=== PATIENT | male | born 1945 | race Caucasian/White ===

== ENCOUNTER 2017-02-02 07:36 | Inpatient (IN) | payer OTHER ==
[2017-02-02] MEDS ORDERED: NS 1,000 ML IV ONE ×2 (07:45→08:51)
[2017-02-02 08:05] LABS: % IMMATURE GRANULYOCYTES 2.2 % (0.0-1.1); ABSOLUTE IMMATURE GRANULOCYTES 0.29 10^3/uL (0.00-0.10); ADD DIFF? NO; ADD MORPH? NO; ADD SCAN? NO; ATYPICAL LYMPHOCYTE FLAG 0 (0-99); FRAGMENT RBC FLAG 0 (0-99); HEMATOCRIT 43.1 % (40.0-51.0); HEMOGLOBIN 14.3 g/dL (13.7-17.5); LEFT SHIFT FLG 20 (0-99); LIPEMIA HEMOLYSIS FLAG 80 (0-99); MEAN CELL HEMOGLOBIN 31.2 pg (27.9-34.1); MEAN CELL HEMOGLOBIN CONCENTR. 33.2 g/dL (32.4-36.7); MEAN CELL VOLUME 94.1 fL (81.5-99.8); MEAN PLATELET VOLUME 10.7 fL (8.7-11.7); PLATELET CLUMPS FLAG 30 (0-99); PLATELET COUNT 143 10^3/uL (150-400); RED BLOOD CELL COUNT 4.58 10^6/uL (4.40-6.38); RED CELL DISTRIBUTION WIDTH 13.6 % (11.5-15.2)
--- NOTE | 2017-02-02 08:17 | EDPHY ---
H & P Stated Complaint: sore throat, fever Time Seen by Provider: 02/02/17 07:43 HPI/ROS: CHIEF COMPLAINT: Sore throat, fever, cough, fatigue HISTORY OF PRESENT ILLNESS: The patient presents to the ED with a several day history of sore throat, fever, cough and fatigue. The patient does have a history of diabetes. He also has a history of obstructive sleep apnea. The patient denies any acute abdominal pain, vomiting or diarrhea. He denies new rash. The patient denies symptoms of dysuria. The patient denies any changes to his chronic medications. The patient does also have a history of bipolar mood disorder. He denies any symptoms of hallucinations, suicidality or depression. The patient states that his symptoms of dyspnea and fatigue are moderate in nature. The patient does endorse symptoms of dehydration including dry mouth. REVIEW OF SYSTEMS: A comprehensive 10 point review of systems is otherwise negative aside from elements mentioned in the history of present illness. Source: Patient Exam Limitations: No limitations - Personal History Tetanus Vaccine Date: 2010 - Medical/Surgical History Hx Asthma: No Hx Chronic Respiratory Disease: No Hx Diabetes: Yes Hx Cardiac Disease: No Hx Renal Disease: No Hx Cirrhosis: No Hx Alcoholism: No Hx HIV/AIDS: No Hx Splenectomy or Spleen Trauma: No Other PMH: DM, Parkinson's, edema, bipolar, prostate CA, HTN, hypothyroid - Social History Smoking Status: Never smoked - Physical Exam Exam: General Appearance: Obese male, slightly tachypneic Eyes: Pupils equal and round no pallor or injection ENT, Mouth: Extremely dry mucous membranes, diffuse or pharyngeal erythema, no obvious mass or trismus Respiratory: There are no retractions, lungs are clear to auscultation Cardiovascular: Tachycardic Gastrointestinal: Protuberant Neurological: 5/5 strength noted all 4 extremities, cranial nerves 2-12 intact Skin: Changes consistent with stasis dermatitis noted to the lower extremities Musculoskeletal: Neck is supple nontender Extremities: symmetrical, full range of motion Constitutional: Initial Vital Signs Temperature (C) 37.2 C 02/02/17 07:47 Heart Rate 138 H 02/02/17 07:47 Respiratory Rate 20 02/02/17 07:47 Blood Pressure 121/81 H 02/02/17 07:47 O2 Sat (%) 93 02/02/17 07:47 O2 Delivery Mode Room Air Allergies/Adverse Reactions: metformin Allergy (Intermediate, Verified 03/06/12 18:42) severe diarrhea trifluoperazine HCl [From Stelazine] Allergy (Verified 06/04/16 13:34) Home Medications: Medication Instructions Recorded ARIPiprazole [Abilify 10 mg (*)] 30 mg PO DAILY 12/20/14 Divalproex [Depakote] 1,000 mg PO HS 12/20/14 Divalproex [Depakote] 500 mg PO DAILY 12/20/14 Furosemide [Lasix 40 MG (*)] 40 mg PO DAILY 12/20/14 LORazepam [Ativan (*)] 1 mg PO DAILY PRN 12/20/14 Levothyroxine [Synthroid 112 mcg 112 mcg PO DAILY 12/20/14 (*)] Lisinopril [Zestril 10 mg (*)] 10 mg PO DAILY 12/20/14 PARoxetine HCL [Paxil 20mg (*)] 20 mg PO DAILY 12/20/14 QUEtiapine FUMARATE [Seroquel 300 mg PO HS 12/20/14 300mg (*)] SIMVASTATIN 10 mg PO HS 12/20/14 Abilify 06/04/16 Aspirin 06/04/16 Ativan 06/04/16 Depakote 06/04/16 Hydrocodone/APAP 5/325 [[place] 1 - 2 each PO Q6 PRN #20 tab 06/04/16 5/325] Lasix 06/04/16 Lisinopril 06/04/16 Paxil 06/04/16 Seroquel 06/04/16 Simvastatin 06/04/16 Synthroid 06/04/16 Medical Decision Making - Diagnostics Imaging Results: Imaging Impressions Chest X-Ray 02/02/17 08:04 Impression: There is no convincing evidence of a focal infiltrate. ED Course/Re-evaluation: The patient presents to the ED for evaluation of sore throat, subjective fever and fatigue. The patient was noted to be tachycardic upon arrival. He was afebrile and normotensive. Patient does have fairly significant pharyngeal erythema without evidence of a peritonsillar mass or swelling. He has no clinical evidence of a retropharyngeal abscess or meningitis. The patient's rapid strep test was negative. Given the patient's complaints of cough, a chest x-ray was performed which demonstrates no evidence of a obvious focal infiltrate. The patient does have clinical symptoms consistent with dehydration manifest with a high heart rate and elevated lactic acid. The patient did receive IV fluid rehydration in the ED. His lactate was rechecked and found to be 2.3. At this point time there is no obvious bacterial source of infection however the patient will be treated for bronchitis with ceftriaxone and azithromycin. The patient will be admitted to the hospitalist service for close observation this evening. I do believe the patient's elevated lactate is a manifestation of mild underlying dehydration and not a marker of severe end-organ dysfunction. I do not feel the patient clinically presenting with septic shock. Additionally, I do not feel that a 4L NS bolus is indicated clinically. Patient will be admitted by Dr. Rosario this evening. Differential Diagnosis: Differential diagnosis considered includes pneumonia, pharyngitis, dehydration, viral syndrome - Data Points Laboratory Results: Laboratory Results 02/02/17 07:50 02/02/17 07:50 02/02/17 02/02/17 02/02/17 09:45 07:50 07:50 WBC RBC Hgb Hct MCV MCH MCHC RDW Plt Count MPV Neut % (Auto) Lymph % (Auto) [place] % (Auto) Eos % (Auto) Baso % (Auto) Nucleat RBC Rel Count Absolute Neuts (auto) Absolute Lymphs (auto) Absolute Monos (auto) Absolute Eos (auto) Absolute Basos (auto) Absolute Nucleated RBC Immature Gran % Immature Gran # Puncture Site RIGHT RADIAL Patient Temperature 37.0 DEGREES DEGREES pCO2 29 mmHg L mmHg (34-38) pO2 63 mmHg L mmHg (65-75) Total CO2 20 mEq/L L mEq/L (23-27) ABG pH 7.43 (7.35-7.45) ABG HCO3 19 mEq/L L mEq/L (22-26) ABG O2 Saturation 92 % % (92-95) ABG Base Excess -3.7 mEq/L L mEq/L (-2.5-2.5) ABG Hemoglobin 13.6 gm/dL L gm/dL (14.5-17.3) VBG Lactic Acid 4.0 mmol/L H mmol/L (0.7-2.1) POC Sodium 135 mEq/L L mEq/L (137-146) POC Potassium 4.4 mEq/L mEq/L (3.3-5.0) Sodium 136 mEq/L mEq/L (134-144) Potassium 5.5 mEq/L H mEq/L (3.5-5.2) Chloride 103 mEq/L mEq/L (97-110) Carbon Dioxide 18 mEq/l L mEq/l (22-31) Anion Gap 15 mEq/L mEq/L (8-16) BUN 13 mg/dL mg/dL (7-23) Creatinine 1.0 mg/dL mg/dL (0.7-1.3) Estimated GFR > 60 Glucose 259 mg/dL H mg/dL (70-100) Calcium 9.3 mg/dL mg/dL (8.5-10.4) Ionized Calcium 1.14 MMOL/L MMOL/L (1.12-1.30) Specimen Hemolysis 183 Group A Strep Screen 02/02/17 02/02/17 07:50 07:40 WBC 13.42 10^3/uL H 10^3/uL (3.80-9.50) RBC 4.58 10^6/uL 10^6/uL (4.40-6.38) Hgb 14.3 g/dL g/dL (13.7-17.5) Hct 43.1 % % (40.0-51.0) MCV 94.1 fL fL (81.5-99.8) MCH 31.2 pg pg (27.9-34.1) MCHC 33.2 g/dL g/dL (32.4-36.7) RDW 13.6 % % (11.5-15.2) Plt Count 143 10^3/uL L 10^3/uL (150-400) MPV 10.7 fL fL (8.7-11.7) Neut % (Auto) 72.0 % % (39.3-74.2) Lymph % (Auto) 8.6 % L % (15.0-45.0) [place] % (Auto) 13.6 % H % (4.5-13.0) Eos % (Auto) 2.8 % % (0.6-7.6) Baso % (Auto) 0.8 % % (0.3-1.7) Nucleat RBC Rel Count 0.0 % % (0.0-0.2) Absolute Neuts (auto) 9.67 10^3/uL H 10^3/uL (1.70-6.50) Absolute Lymphs (auto) 1.16 10^3/uL 10^3/uL (1.00-3.00) Absolute Monos (auto) 1.82 10^3/uL H 10^3/uL (0.30-0.80) Absolute Eos (auto) 0.37 10^3/uL 10^3/uL (0.03-0.40) Absolute Basos (auto) 0.11 10^3/uL H 10^3/uL (0.02-0.10) Absolute Nucleated RBC 0.00 10^3/uL 10^3/uL (0-0.01) Immature Gran % 2.2 % H % (0.0-1.1) Immature Gran # 0.29 10^3/uL H 10^3/uL (0.00-0.10) Puncture Site Patient Temperature pCO2 pO2 Total CO2 ABG pH ABG HCO3 ABG O2 Saturation ABG Base Excess ABG Hemoglobin VBG Lactic Acid POC Sodium POC Potassium Sodium Potassium Chloride Carbon Dioxide Anion Gap BUN Creatinine Estimated GFR Glucose Calcium Ionized Calcium Specimen Hemolysis Group A Strep Screen NEGATIVE (NEGATIVE) Microbiology Results: MICROBIOLOGY 02/02/17 08:25 Nasal, Sinus - Swab Respiratory Panel (PCR) - Final No Organism Detected Medications Given: Discontinued Medications Azithromycin (Zithromax) 500 mg PO EDNOW ONE PRN Reason: Protocol Stop: 02/02/17 09:00 Last Admin: 02/02/17 09:28 Dose: 500 mg Sodium Chloride (Ns) 1,000 mls @ 0 mls/hr IV ONCE ONE; Wide Open PRN Reason: Protocol Stop: 02/02/17 07:46 Last Admin: 02/02/17 08:07 Dose: 1,000 mls Sodium Chloride (Ns) 1,000 mls @ 0 mls/hr IV ONCE ONE; Wide Open PRN Reason: Protocol Stop: 02/02/17 08:52 Last Admin: 02/02/17 09:27 Dose: 1,000 mls Ceftriaxone Sodium/Dextrose (Rocephin 1 Gm (Premix)) 50 mls @ 100 mls/hr IV EDNOW ONE PRN Reason: Protocol Stop: 02/02/17 09:28 Last Admin: 02/02/17 09:28 Dose: 50 mls Point of Care Test Results: 02/02/17 09:45 POC Sodium 135 L POC Potassium 4.4 Departure - Departure Disposition: [facility] Inpatient Acute Clinical Impression: Bronchitis, Pharyngitis, Dehydration, Tachycardia Condition: Fair
[2017-02-02 08:30] LABS: ANION GAP 15 mEq/L (8-16); CALCIUM 9.3 mg/dL (8.5-10.4); CARBON DIOXIDE 18 mEq/l (22-31); CHLORIDE 103 mEq/L (97-110); GLOMERULAR FILTRATION RATE > 60; GLUCOSE 259 mg/dL (70-100); POTASSIUM 5.5 mEq/L (3.5-5.2); SODIUM 136 mEq/L (134-144); SPECIMEN HEMOLYSIS 183
[2017-02-02] MEDS ORDERED: AZITHROMYCIN 250 MG TAB PO ONE (08:59)
[2017-02-02 09:55] LABS: BASE EXCESS -3.7 mEq/L (-2.5-2.5); BICARBONATE 19 mEq/L (22-26); HEMOGLOBIN ABG 13.6 gm/dL (14.5-17.3); IONIZED CALCIUM 1.14 MMOL/L (1.12-1.30); MEASURED OXYGEN SATURATION 92 % (92-95); PCO2 29 mmHg (34-38); PO2 63 mmHg (65-75); SODIUM ABG 135 mEq/L (137-146); TCO2 20 mEq/L (23-27)
[2017-02-02 11:36] LABS: COLOR YELLOW; LEUKOCYTE ESTERASE,URINE NEGATIVE (NEGATIVE); NITRITE,URINE NEGATIVE (NEGATIVE)
[2017-02-02 11:38] LABS: MUCUS 1+ /lpf (NONE-1+)
--- NOTE | 2017-02-02 14:28 | WOCRNPDOC ---
WOCRN Advanced Assessment Note - Skin Integrity Problem, Advanced Assess Coccyx Pressure Injury Dressing Type: Open to Air Site Measurement - Head-to-Toe Length X Width X Depth (cm): 3x1x0 Pressure Injury Stage: Stage 1 Pressure Injury Present on Admit: Yes Groin Excoriation Dressing Type: Open to Air Exudate Amount: Scant Exudate Color: Clear Usha Wound Tissue: Erythema Site Measurement - Head-to-Toe Length X Width X Depth (cm): 5x5x0.1 Skin Integrity Problem Comment: Denuded skin on scrotum. Partial thickness. Apply Calazime cream to area. Luz Elena CAAL and Darius RN in room for care. Bilateral [place] Moisture Associated Dermatitis Dressing Type: Open to Air Site Measurement - Head-to-Toe Length X Width X Depth (cm): 1x7x0.1 Skin Integrity Problem Comment: Several partial thickness openings consistent with intertriginous dermatitis. Minimal to no fungal involvement. Keep skin off skin with pillowcases. Bilateral Lower Leg Venous Dermatitis Dressing Type: Open to Air Usha Wound Tissue: Erythema, Scaly, Hemosiderin Staining, Venous Dermatitis, Anhidrotic Site Odor: None Extremity Temperature: Hot Skin Integrity Problem Comment: No open wounds present. Bilateral heels blanching. Continue with compression. May remove compression at [facility]. Patient has compression however it was taken off before Wound RN rounded.
[2017-02-02] MEDS ORDERED: ACETAMINOPHEN 325 MG TAB PO PRN (15:46)
[2017-02-02] MEDS ORDERED: ONDANSETRON 4 MG/2 ML VIAL IVP PRN (15:46)
[2017-02-02] MEDS ORDERED: D50W 25 GM/50 ML SYR IVP PRN (15:50)
[2017-02-02] MEDS ORDERED: ARIPiprazole 10 MG TAB PO SCH (16:30)
[2017-02-02] MEDS ORDERED: D10W 250 ML PRN HYPOGLYCEMIA IV (16:30)
--- NOTE | 2017-02-02 16:32 | GHP ---
[f rep st] HISTORY AND PHYSICAL DATE OF ADMISSION: 02/02/2017 CHIEF COMPLAINT: Sore throat. HISTORY OF PRESENT ILLNESS: This is a 71-year-old male with a history of type 2 diabetes and [place] son's. He is essentially chair bound and does not really ambulate at baseline. He does get home he alth. He states he has had 3 days of severe sore throat. He has had fevers. No cough. He has had no nausea or vomiting. No chest pain or shortness of breath. He does admit to fatigue. REVIEW OF SYSTEMS: A 10-point review of systems was obtained and was otherwise negative. PAST MEDICAL HISTORY: 1. Type 2 diabetes. 2. Parkinson's. 3. Prostate cancer. 4. Hypertension. 5. Obstructive sleep apnea. 6. Hypothyroidism. SOCIAL HISTORY: No smoking or alcohol. Lives alone. FAMILY HISTORY: Reviewed and noncontributory. PHYSICAL EXAMINATION: VITAL SIGNS: Afebrile. Blood pressure 141/78, heart rate 109, oxygen saturat ion is 90% on room air. GENERAL: The patient is well developed, no apparent distress. HEENT: Non icteric sclerae. Extraocular movements intact. Slightly dry mucous membranes. Diffuse pharyngeal erythema. LUNGS: Good effort. Clear to auscultation bilaterally. CARDIOVASCULAR: Regular rate an d rhythm. No murmurs, rubs, or gallops. ABDOMEN: Positive bowel sounds. Soft, nontender, nondist ended. No hepatosplenomegaly. EXTREMITIES: No clubbing, cyanosis. There is trace edema and chron ic venous stasis changes. NEUROLOGIC: Alert and oriented x3. Moving all 4 extremities equally but does have a tremor. PSYCH: Normal mood and affect. LABORATORY DATA: White blood cell count elevated at 13, platelets 143. Sodium 136, potassium 5.5, CO2 about 18. Blood sugar is 259, lactic acid is 2.3. ASSESSMENT: This is a 71-year-old male, who presents with pharyngitis and dehydration. PLAN: 1. Pharyngitis. Rapid strep and respiratory viral pathogens are negative. We will, however, treat with ceftriaxone until cultures come back. He does have a slightly elevated white blood cell count. 2. Slightly elevated lactic acid and slight tachycardia. The patient does meet early sepsis criter ia. However, I think this is early, mild. We will give IV fluids today but hold off on the bolus co nsidering his lower extremity edema. 3. Mild hyperkalemia, probably related to the slight acidosis. We will hold off his lisinopril unt il this gets better. 4. Type 2 diabetes. Will do sliding scale insulin. 5. Bipolar. Continue medications. 6. Obstructive sleep apnea. Continue CPAP. 7. DVT prophylaxis. We will treat with Lovenox. 8. Admission. Patient will be admitted to the observation status. Case discussed with LISANDRO Shanks records reviewed and summarized. /[id number]/MODL
[2017-02-02] MEDS: PARoxetine HCL 20 MG TAB PO SCH (16:39)
[2017-02-02] MEDS: ACETAMINOPHEN 500 MG TAB PO PRN (16:42)
[2017-02-02] MEDS: LORazepam 1 MG TAB PO PRN (17:00)
[2017-02-02] MEDS: ARIPiprazole 10 MG TAB PO SCH (17:00)
[2017-02-02] MEDS: INSULIN LISPRO 100 UNIT/ML SC SCH (18:04)
[2017-02-02] MEDS ORDERED: NON-FORMULARY NEW DRUG (Simvastatin [Simvastatin] 10 MG) PO SCH (21:00)
[2017-02-02] MEDS: QUEtiapine FUMARATE 300 MG TAB PO SCH (21:41)
[2017-02-02] MEDS: PRAVASTATIN SODIUM 20 MG TAB PO SCH (21:41)
[2017-02-02] MEDS: DIVALPROEX NA 500 MG TAB PO SCH (21:41)
[2017-02-03 05:10] LABS: ADD DIFF? YES; ADD MORPH? NO; ATYPICAL LYMPHOCYTE FLAG 0 (0-99); FRAGMENT RBC FLAG 0 (0-99); HEMATOCRIT 41.2 % (40.0-51.0); HEMOGLOBIN 13.5 g/dL (13.7-17.5); LEFT SHIFT FLG 20 (0-99); LIPEMIA HEMOLYSIS FLAG 80 (0-99); MEAN CELL HEMOGLOBIN CONCENTR. 32.8 g/dL (32.4-36.7); MEAN CELL VOLUME 94.7 fL (81.5-99.8); MEAN PLATELET VOLUME 10.1 fL (8.7-11.7); PLATELET CLUMPS FLAG 120 (0-99); PLATELET COUNT 144 10^3/uL (150-400); RED BLOOD CELL COUNT 4.35 10^6/uL (4.40-6.38); RED CELL DISTRIBUTION WIDTH 13.5 % (11.5-15.2)
[2017-02-03 05:11] LABS: ADD SCAN? NO
[2017-02-03 05:29] LABS: ALANINE AMINOTRANSFERASE 33 IU/L (21-72); ALBUMIN 3.2 g/dL (3.5-5.0); ALKALINE PHOSPHATASE 74 IU/L (38-126); ANION GAP 10 mEq/L (8-16); ASPARTATE AMINOTRANSFERASE 21 IU/L (17-59); BILIRUBIN,TOTAL 0.7 mg/dL (0.1-1.4); CARBON DIOXIDE 19 mEq/l (22-31); CHLORIDE 107 mEq/L (97-110); CREATININE 0.9 mg/dL (0.7-1.3); GLOMERULAR FILTRATION RATE > 60; GLUCOSE 191 mg/dL (70-100); POTASSIUM 4.4 mEq/L (3.5-5.2); SODIUM 136 mEq/L (134-144); TOTAL PROTEIN 5.9 g/dL (6.3-8.2)
[2017-02-03 05:43] LABS: PLATELET ESTIMATE DECREASED (ADEQ); POLYCHROMASIA 1+
[2017-02-03] MEDS: LEVOTHYROXINE 200 MCG TAB PO SCH (05:53)
[2017-02-03] MEDS: NS 1,000 ML IV SCH ×2 (06:25→21:50)
[2017-02-03] MEDS ORDERED: LISINOPRIL 10 MG TAB PO SCH (09:00)
[2017-02-03] MEDS ORDERED: ARIPiprazole 10 MG TAB PO SCH (09:00)
[2017-02-03] MEDS: INSULIN LISPRO 100 UNIT/ML SC SCH ×3 (09:04→17:28)
[2017-02-03] MEDS: PARoxetine HCL 20 MG TAB PO SCH (09:04)
[2017-02-03] MEDS: TAMSULOSIN HCL 0.4 MG CAP PO SCH (09:04)
[2017-02-03] MEDS: DIVALPROEX NA 500 MG TAB PO SCH ×2 (09:04→19:58)
[2017-02-03] MEDS: ENOXAPARIN 40 MG/0.4 ML SYR SC SCH (09:05)
[2017-02-03] MEDS: ARIPiprazole 10 MG TAB PO SCH (09:49)
--- NOTE | 2017-02-03 13:05 | CPEKG ---
Heart Rate: 120 RR Interval: 500 P-R Interval: 168 QRSD Interval: 88 QT Interval: 304 QTC Interval: 430 P Otter[place]: 62 QRS [place]: 26 T Wave [place]: 159 EKG Severity - ABNORMAL ECG - EKG Impression: SINUS TACHYCARDIA Electronically Signed By: Francois Knox 05-Feb-2017 09:00:26
[2017-02-03] MEDS ORDERED: ERTAPENEM 1 GM in NS 100 ML IV SCH (15:00)
--- NOTE | 2017-02-03 15:02 | HOSPPROG ---
Hospitalist Progress Note Assessment/Plan: * pharyngitis * strep is negative * sepsis * lactate is better * even though he has pharyngitis I'm suspicious of another source * he does show signs of aspiration possibly aspiration pneumonia * video swallow is pending * will broaden antibiotics to Invanz * checking procalcitonin * tachycardia * mild * due to possible sepsis and persistent tachycardia will get a CT scan of the chest rule out PE * type 2 diabetes * chronic venous stasis changes * essentially bed-bound * multiple decubitus ulcers * obstructive sleep apnea * Parkinson's * DVT prophylaxis Subjective: Feels about the same. Throat still hurts Objective: Vital Signs Temp Pulse Resp BP Pulse Ox 37.7 C 117 H 20 130/81 H 93 02/03/17 14:45 02/03/17 14:45 02/03/17 14:45 02/03/17 14:45 02/03/17 14:45 Laboratory Results 02/03/17 04:45 02/03/17 04:45 02/02/17 02/03/17 02/04/17 05:59 05:59 05:59 Intake Total 2145 785 Output Total 800 Balance 1345 785 - Physical Exam Constitutional: no apparent distress, appears nourished, not in pain Eyes: anicteric sclera, EOMI Ears, Nose, Mouth, Throat: moist mucous membranes, hearing normal Cardiovascular: regular rate and rhythym, no murmur, rub, or gallop Respiratory: no respiratory distress, no rales or rhonchi, clear to auscultation , reduced air movement Gastrointestinal: normoactive bowel sounds, soft, non-tender abdomen, no palpable masses Skin: warm, other ( chronic venous stasis changes) Neurologic: AAOx3 Psychiatric: interacting appropriately, not anxious, not encephalopathic, thought process linear ICD10 Worksheet Patient Problems: Problems Problem Status Onset Bronchitis Acute Dehydration Acute Pharyngitis Acute Tachycardia Acute Diabetes mellitus type 2 Active Obesity Active Osteoarthritis of knee Acute
[2017-02-03] MEDS ORDERED: IOPAMIDOL (ISOVUE 370) 100 ML BTL IV ONE ×2 (15:56→16:21)
[2017-02-03] MEDS: LORazepam 1 MG TAB PO PRN (18:01)
[2017-02-03] MEDS: PRAVASTATIN SODIUM 20 MG TAB PO SCH (19:59)
[2017-02-03] MEDS: QUEtiapine FUMARATE 300 MG TAB PO SCH (19:59)
[2017-02-03] MEDS: FLUCONAZOLE 100 MG TAB PO SCH (20:00)
[2017-02-03] MEDS: ACETAMINOPHEN 500 MG TAB PO PRN (20:04)
[2017-02-04] MEDS: LEVOTHYROXINE 200 MCG TAB PO SCH (06:00)
[2017-02-04] MEDS: FLUCONAZOLE 100 MG TAB PO SCH (08:41)
[2017-02-04] MEDS: ENOXAPARIN 40 MG/0.4 ML SYR SC SCH (08:41)
[2017-02-04] MEDS: TAMSULOSIN HCL 0.4 MG CAP PO SCH (08:42)
[2017-02-04] MEDS: PARoxetine HCL 20 MG TAB PO SCH (08:42)
[2017-02-04] MEDS: ARIPiprazole 10 MG TAB PO SCH (08:42)
[2017-02-04] MEDS: INSULIN LISPRO 100 UNIT/ML SC SCH ×3 (08:43→18:16)
[2017-02-04] MEDS: DIVALPROEX NA 500 MG TAB PO SCH ×3 (08:43→20:18)
--- NOTE | 2017-02-04 11:26 | HOSPPROG ---
Hospitalist Progress Note Assessment/Plan: * esophagitis * start initially to have pharyngitis but CT scan showing significant esophagitis * uncertain cause * discussed with GI who will consider EGD * I have placed him on empiric Diflucan * sepsis * lactate is better * procalcitonin does not support bacterial infection * . Antibiotics * tachycardia * mild * possible small pulmonary embolism * at this point will not anticoagulate as it is is soft call and symptoms do not necessarily support this * may repeat CT scanning prior to discharge with better contrast timing * type 2 diabetes * chronic venous stasis changes * essentially bed-bound * multiple decubitus ulcers * obstructive sleep apnea * Parkinson's * DVT prophylaxis Subjective: still hurts to swallow. Maybe a little bit better Objective: Vital Signs Temp Pulse Resp BP Pulse Ox 36.9 C 102 H 21 H 181/88 H 95 02/04/17 08:00 02/04/17 08:00 02/04/17 08:00 02/04/17 08:00 02/04/17 08:00 02/03/17 02/04/17 02/05/17 05:59 05:59 05:59 Intake Total 1845 736 Balance 1845 [address] scan personally viewed interpreted - Physical Exam Constitutional: no apparent distress, appears nourished, not in pain Eyes: anicteric sclera Ears, Nose, Mouth, Throat: moist mucous membranes, No oral thrush Cardiovascular: regular rate and rhythym, no murmur, rub, or gallop Respiratory: no respiratory distress, no rales or rhonchi, clear to auscultation , reduced air movement Gastrointestinal: normoactive bowel sounds, soft, non-tender abdomen, no palpable masses Skin: warm Neurologic: AAOx3 Psychiatric: interacting appropriately, not anxious, not encephalopathic, thought process linear ICD10 Worksheet Patient Problems: Problems Problem Status Onset Bronchitis Acute Dehydration Acute Pharyngitis Acute Tachycardia Acute Diabetes mellitus type 2 Active Obesity Active Osteoarthritis of knee Acute
[2017-02-04] MEDS: NS 1,000 ML IV SCH (15:24)
[2017-02-04] MEDS: QUEtiapine FUMARATE 300 MG TAB PO SCH (20:12)
[2017-02-04] MEDS: LORazepam 1 MG TAB PO PRN (20:12)
[2017-02-04] MEDS: PRAVASTATIN SODIUM 20 MG TAB PO SCH (20:13)
[2017-02-05] MEDS: ACETAMINOPHEN 500 MG TAB PO PRN (02:27)
[2017-02-05] MEDS: LEVOTHYROXINE 200 MCG TAB PO SCH (04:38)
[2017-02-05 05:14] LABS: ADD DIFF? YES; ADD MORPH? NO; ADD SCAN? NO; ATYPICAL LYMPHOCYTE FLAG 20 (0-99); FRAGMENT RBC FLAG 0 (0-99); HEMATOCRIT 36.3 % (40.0-51.0); HEMOGLOBIN 12.2 g/dL (13.7-17.5); LEFT SHIFT FLG 30 (0-99); LIPEMIA HEMOLYSIS FLAG 80 (0-99); MEAN CELL HEMOGLOBIN 31.4 pg (27.9-34.1); MEAN CELL HEMOGLOBIN CONCENTR. 33.6 g/dL (32.4-36.7); MEAN CELL VOLUME 93.6 fL (81.5-99.8); MEAN PLATELET VOLUME 10.3 fL (8.7-11.7); PLATELET CLUMPS FLAG 0 (0-99); PLATELET COUNT 158 10^3/uL (150-400); RED BLOOD CELL COUNT 3.88 10^6/uL (4.40-6.38); RED CELL DISTRIBUTION WIDTH 13.9 % (11.5-15.2)
[2017-02-05 05:30] LABS: ANION GAP 9 mEq/L (8-16); CARBON DIOXIDE 22 mEq/l (22-31); CHLORIDE 107 mEq/L (97-110); CREATININE 0.9 mg/dL (0.7-1.3); GLOMERULAR FILTRATION RATE > 60; GLUCOSE 133 mg/dL (70-100); SODIUM 138 mEq/L (134-144)
[2017-02-05 05:38] LABS: PLATELET ESTIMATE DECREASED (ADEQ)
[2017-02-05 05:39] LABS: POLYCHROMASIA 1+
[2017-02-05] MEDS ORDERED: LR 1,000 ML IV SCH (08:30)
[2017-02-05] MEDS: INSULIN LISPRO 100 UNIT/ML SC SCH ×3 (08:39→19:25)
--- NOTE | 2017-02-05 08:59 | PDANEPAE ---
ANE History of Present Illness Esophagitis, needs EGD ANE Past Medical History - Cardiovascular History Hx Hypertension: Yes Hx Arrhythmias: No Hx Chest Pain: No Hx Coronary Artery / Peripheral Vascular Disease: No Hx CHF / Valvular Disease: No Hx Palpitations: No - Pulmonary History Hx COPD: No Hx Asthma/Reactive Airway Disease: No Hx Recent Upper Respiratory Infection: No Hx Oxygen in Use at Home: No - Neurologic History Hx Cerebrovascular Accident: No Hx Seizures: No Hx Dementia: No - Endocrine History Hx Diabetes: Yes - Renal History Hx Renal Disorders: No - Liver History Hx Hepatic Disorders: No - Neurological & Psychiatric Hx Hx Neurological and Psychiatric Disorders: Yes - Cancer History Hx Cancer: Yes - Congenital Disorder History Hx Congenital Disorders: No - GI History Hx Gastrointestinal Disorders: No - Chronic Pain History Chronic Pain: Yes (RT KNEE) ANE Review of Systems - Systems Neurological: Reports: other (Bipolar disorder, Parkinsons (no Rx currently)) ANE Patient History - Allergies Allergies/Adverse Reactions: metformin Allergy (Intermediate, Verified 03/06/12 18:42) severe diarrhea trifluoperazine HCl [From Stelazine] Allergy (Verified 02/02/17 11:53) - Home Medications Home Medications: ARIPiprazole [Abilify 10 mg (*)] 20 mg PO DAILY 12/20/14 [Last Taken 02/01/17] Divalproex [Depakote] 1,000 mg PO HS 12/20/14 [Last Taken 02/01/17] Divalproex [Depakote] 500 mg PO DAILY 12/20/14 [Last Taken 02/01/17] Furosemide [Lasix 40 MG (*)] 40 mg PO DAILY 12/20/14 [Last Taken 02/01/17] Lisinopril [Zestril 10 mg (*)] 10 mg PO DAILY 12/20/14 [Last Taken 02/01/17] PARoxetine HCL [Paxil 20mg (*)] 20 mg PO DAILY 12/20/14 [Last Taken 02/01/17] QUEtiapine FUMARATE [Seroquel 300mg (*)] 300 mg PO HS 12/20/14 [Last Taken 02/01] LORazepam [Ativan (*)] 0.5 - 1 mg PO DAILY PRN 02/02/17 [Last Taken Unknown] Levothyroxine [Synthroid 200 mcg (*)] 200 mcg PO DAILY06 02/02/17 [Last Taken ] Simvastatin 10 mg PO HS 02/02/17 [Last Taken 02/01/17] - NPO status NPO Since - Liquids (Date): 02/03/17 NPO Since - Solids (Date): 02/03/17 - Smoking Hx Smoking Status: Never smoked - Family Anes Hx Family Hx Anesthesia Complications: none ANE Labs/Vital Signs - Labs Result Diagrams: 02/05/17 04:33 02/05/17 04:33 - Vital Signs Blood Pressure: 147/74 Heart Rate: 88 Respiratory Rate: 20 O2 Sat (%): 92 Height: 187.96 cm Weight: 133.81 kg ANE Physical Exam - Airway Neck exam: FROM Mallampati Score: Class 2 - Pulmonary Pulmonary: no respiratory distress - Cardiovascular Cardiovascular: regular rate and rhythym - ASA Status ASA Status: III ANE Anesthesia Plan Anesthesia Plan: MAC
[2017-02-05] MEDS ORDERED: PROPOFOL 200 MG/20 ML VIAL ONE (09:01)
--- NOTE | 2017-02-05 09:03 | GCON ---
[f rep st] CONSULTATION CONSULTATIVE NOTE CHIEF COMPLAINT: 71-year-old male with odynophagia. HISTORY OF PRESENT ILLNESS: I have been asked to see Mr. Roque by Dr. Rosario in consultation for odynophagia. This 71-year-old gentleman has a history of type 2 diabetes myelitis, as well as Parkinson disease. He has COPD and has obstructive sleep apnea. He is on CPAP at home. He is essentially chair-bound , and has home healthcare. He does live alone. He had presented to the hospital with increasing symptoms of odynophagia. He was having trouble and pain with swallowing. He is unable to take in liquids or solids. He reported a low-grade fever, 99. He has had similar symptoms in the past, per his report. He has not had a previous upper endoscopy. He did undergo imaging. He had a video esophagram, that showed risks for operation with penetration of the level of vocal cords, with all consistency and possible silent aspiration of residual contrast and thin contrast. The patient is currently n.p.o. He also had a CT scan of his chest, for symptoms of dyspnea and shortness of breath. He did have evidence of diffuse wall thickening throughout the esophagus, possibly representing diffuse esophagitis, although carcinoma could not be excluded. Asked to see patient for further evaluation of odynophagia. PAST MEDICAL HISTORY: Diabetes mellitus types 2, Parkinson disease, prostate cancer, hypertension, obstructive sleep apnea, hypothyroidism, bipolar disorder. SOCIAL HISTORY: He is a nonsmoker, nondrinker. Lives alone. FAMILY HISTORY: Negative as it pertains to HPI. ALLERGIES: Stelazine and Metformin CURRENT MEDICATIONS: Tylenol, Abilify, Depakote, Lovenox, Diflucan, levothyroxine, Ativan, Zofran, Paxil, Pravachol, Seroquel, Flomax. REVIEW OF SYSTEMS: Negative for 10 systems other than mentioned in HPI. PHYSICAL EXAM: VITAL SIGNS: 140/77, heart rate of 88, respiratory rate 20, 92 % sat on 2 L nasal cannula, temperature is 36.9. GENERAL: Very ill-appearing gentleman, obese, lying in bed, in no acute distress. HEENT: Normocephalic, atraumatic. EOMI. No scleral icterus. Pharynx is diffuse pharyngeal erythema. NECK: Supple. No cervical adenopathy. No thyromegaly. LUNGS: Normal breath sounds. CARDIAC: Normal S1, S2 without murmur. ABDOMEN: Positive bowel sounds. Soft, nontender, nondistended. No hepatosplenomegaly. EXTREMITIES: With venous stasis changes with 1 to 2+ edema. NEUROLOGIC: Alert and oriented x3. Moving all 4 extremities with tremor. PSYCH: Normal affect. SKIN: Warm, dry, intact. EXTREMITIES: Without clubbing, cyanosis, edema. LABORATORY DATA: Group A strep screen was negative. Group A strep DNA was negative. White count was 9.2. CBC: White count of 9.29, hemoglobin 12.2, hematocrit 36.3. Serum chemistries: Serum sodium 138, potassium 4.0, chloride of 107, CO2 of 22, BUN of 11, creatinine 0.9, blood sugar of133. Video esophagram as above. CT scan of the chest as above, with a questionable small amount of pulmonary embolus in the left upper lobe and right lower lobe. The exam, however, was suboptimal with difficulty with contrast opacification in the pulmonary arteries. There was evidence of pulmonary hypertension. Diffuse wall thickening throughout the esophagus could be secondary to esophagitis, mild atelectasis, evidence of atherosclerotic disease of the coronary arteries. Chest x-ray unremarkable. IMPRESSION: 71-year-old gentleman with significant comorbid disease with chronic obstructive pulmonary disease, obstructive sleep apnea on oxygen, Parkinson disease. Patient with complaints of odynophagia, and thickening of the esophagus on CT scan. Question esophagitis. Less likely malignancy. Differential diagnosis could include viral pharyngitis, opportunistic infection such as [place] esophagitis. However, there was no oral thrush, herpes simplex , Cytomegalovirus, esophagitis. RECOMMENDATIONS: 1. Patient is n.p.o. with aspiration risk. 2. Proceed with diagnostic endoscopy with Anesthesia assistance due to increased risk and comorbid disease. 3. The patient is currently on anticoagulation, Lovenox. Will coordinate with hospitalist about holding Lovenox. Also, a question of whether or not the patient has underlying pulmonary embolus. Will follow with you. /[id number]/MODL MTDD
[2017-02-05] MEDS ORDERED: LABETALOL HCL 5 MG/ML 20 ML MDV IVP PRN (09:30)
[2017-02-05] MEDS ORDERED: fentaNYL 100 MCG/2 ML INJ IVP PRN (09:30)
[2017-02-05] MEDS ORDERED: NALOXONE HCL 0.4 MG/ML INJ IVP PRN (09:30)
--- NOTE | 2017-02-05 09:32 | POSTANESTH ---
Post Anesthetic Evaluation Cardiovascular Status: Normal, Stable, Similar to Pre-Op Cond Respiratory Status: Similar to Pre-op Cond. Level of Consciousness/Mental Status: Can Participate in Eval, Alert and Oriented Pain Control: Adequate, Prn Tx Ordered Nausea/Vomiting Control: Adequate, Prn Tx Ordered Complications Possibly Related to Anesthesia: None Noted
--- NOTE | 2017-02-05 10:31 | HOSPPROG ---
Hospitalist Progress Note Assessment/Plan: 71-year-old male with multiple comorbidities including Parkinson's and essentially bed-bound presented with weakness and pharyngitis * pharyngitis/esophagitis * thought initially to have pharyngitis only but CT scan showing significant esophagitis * Just found out that caregiver has come down with strep - rapid strep was negative here and did receive 3 doses of antibiotics, will get a throat culture and start abx empirically. * EGD showed mild esophagitis but nothing severe and continued pharyngitis * I guess this all could have been strep * sepsis * lactate is better * tachycardia * mild * dysphagia * Place dobhoff today * See if he is quickly improving or may need PEG tube in the next few days * possible small pulmonary embolism * at this point will not anticoagulate as it is is soft call and symptoms do not necessarily support this * Will get ultrasound of legs * may repeat CT scanning prior to discharge with better contrast timing * type 2 diabetes * chronic venous stasis changes * essentially bed-bound * multiple decubitus ulcers * obstructive sleep apnea * Parkinson's * DVT prophylaxis - Lovenox Subjective: Had EGD done this morning. No new complaints Objective: Vital Signs Temp Pulse Resp BP Pulse Ox 36.7 C 90 16 130/89 H 97 02/05/17 09:39 02/05/17 09:25 02/05/17 09:41 02/05/17 09:41 02/05/17 09:41 Laboratory Results 02/05/17 04:33 02/05/17 04:33 02/04/17 02/05/17 02/06/17 05:59 05:59 05:59 Intake Total 1845 1823 300 Balance 184 1823 300 Discussed with Gastroenterology - Physical Exam Constitutional: no apparent distress, appears nourished, not in pain Eyes: anicteric sclera, EOMI Ears, Nose, Mouth, Throat: moist mucous membranes, hearing normal Cardiovascular: regular rate and rhythym, no murmur, rub, or gallop, edema ( Trace) Respiratory: no respiratory distress, no rales or rhonchi, clear to auscultation Gastrointestinal: normoactive bowel sounds, soft, non-tender abdomen, no palpable masses Skin: warm, other (Venous stasis changes) Neurologic: AAOx3 Psychiatric: interacting appropriately, not anxious, not encephalopathic, thought process linear ICD10 Worksheet Patient Problems: Problems Problem Status Onset Bronchitis Acute Dehydration Acute Pharyngitis Acute Tachycardia Acute Diabetes mellitus type 2 Active Obesity Active Osteoarthritis of knee Acute
--- NOTE | 2017-02-05 10:49 | GPN ---
[f rep st] PROCEDURE NOTE PROCEDURE: Esophagogastroduodenoscopy with biopsy. PREOPERATIVE DIAGNOSES: Odynophagia, dysphagia, abnormal CT scan of the esophagus on the chest CT scan with esophagitis and esophageal thickening. INDICATIONS: A 71-year-old gentleman with multiple medical problems with Parkinson's and COPD, obstructive sleep apnea. Patient presented with a 3-day history of difficulty swallowing with pharyngeal pain. He had erythematous pharynx was strep negative. He had an esophagram that showed risk for aspiration and CT scan that showed some thickening of the esophagus consistent with esophagitis, less likely malignancy. Presents today for upper endoscopy. PHYSICAL EXAMINATION: VITAL SIGNS: Stable. LUNGS: Clear. CARDIAC: Normal S1, S2. PERMIT: Procedure was explained to the patient. Risks and benefits of the procedure were outlined to the patient. Informed consent was obtained. PREOPERATIVE MEDICATIONS: Per Anesthesia. FINDINGS OF PROCEDURE: The patient was placed in the left lateral decubitus position. The GIF-180 videoscope was passed in the oropharynx under direct visualization to the proximal esophagus. There was diffuse patchy inflammation throughout the esophagus without ulceration. Erythematous changes were nonspecific. An irregular Z-line at 45 cm. GE junction was not biopsied; however, proximal and distal esophageal biopsies were obtained. The endoscope was passed into the stomach. He had a normal appearing angularis, fundus, and cardia. Endoscope was passed to the pylorus, and the 1st and 2nd portion of the duodenum. The duodenal sweep was normal. Endoscope was brought back in the stomach. Retroflex view of the stomach revealed a normal angularis, fundus , and cardia. Endoscope was un-retroflexed and withdrawn. IMPRESSION: Nonspecific esophagitis. RECOMMENDATIONS: 1. PPI, pantoprazole IV 40 mg q.12 hours. 2. Await biopsy results for histologic evaluation of esophagitis. Findings were nonspecific. Biopsies to rule out viral etiology. no evidence of candidiasis. 3. Can resume on Lovenox shots. 4. May start on Dophoff tube feeds for hydration and nutrition /[id number]/MODL MTDD
[2017-02-05] MEDS: ARIPiprazole 10 MG TAB PO SCH (10:50)
[2017-02-05] MEDS: DIVALPROEX NA 500 MG TAB PO SCH (10:51)
[2017-02-05] MEDS: PARoxetine HCL 20 MG TAB PO SCH (10:51)
[2017-02-05] MEDS: TAMSULOSIN HCL 0.4 MG CAP PO SCH (10:51)
[2017-02-05] MEDS: ENOXAPARIN 40 MG/0.4 ML SYR SC SCH (10:53)
[2017-02-05] MEDS: FLUCONAZOLE 100 MG TAB PO SCH (11:42)
[2017-02-05] MEDS ORDERED: LIDOCAINE 2% JELLY 5 ML TUBE ONE (12:31)
[2017-02-05] MEDS ORDERED: BENZOCAINE UNIT DOSE SPRAY HURRICAINE MM ONE (12:46)
[2017-02-05] MEDS: AMPICILLIN SODIUM 1 GM in NS 100 ML IV SCH ×2 (13:24→18:51)
[2017-02-05] MEDS ORDERED: ACETAMINOPHEN 160 MG/5 ML UDCUP PO PRN (13:43)
[2017-02-05] MEDS ORDERED: ACETAMINOPHEN 650 MG/20.3 ML UDCUP PO PRN (13:51)
[2017-02-05] MEDS ORDERED: LORazepam 1 MG TAB TUBE PRN (13:54)
[2017-02-05] MEDS: ACETAMINOPHEN 650 MG/20.3 ML UDCUP TUBE PRN ×2 (14:24→20:14)
[2017-02-05] MEDS: NS 1,000 ML IV SCH (15:11)
[2017-02-05] MEDS ORDERED: LORazepam 1 MG TAB PO PRN (15:14)
--- NOTE | 2017-02-05 16:58 | WOCRNPDOC ---
WOCRN Advanced Assessment Note - Skin Integrity Problem, Advanced Assess Left Lower Posterior Ankle Blister Dressing Type: Open to Air Wound Bed Constitution: Intact Serous Filled Blister (x1) Site Measurement - Head-to-Toe Length X Width X Depth (cm): 1x0.5xraised blister Skin Integrity Problem Comment: Small blister on achilles.Two to three (0.5x0.5 is the largest) other small partial thickness openings noted that may either by de roofed blisters or abrasions. Patient needs compression on at all times during the day. On assessment compression had not been applied. Cover area with wound gel and allevyn. Patient's legs continue to have a large amount of fluid retention along with venous stasis. The area will likely continue to develop blisters and wounds until these are managed. Wound care does not need to follow these wounds. Discussed with Luz Elena CAAL.
[2017-02-05] MEDS: QUEtiapine FUMARATE 100 MG TAB TUBE SCH (20:13)
[2017-02-05] MEDS: QUEtiapine FUMARATE 50 MG TAB TUBE SCH (20:13)
[2017-02-05] MEDS: PRAVASTATIN SODIUM 20 MG TAB TUBE SCH (20:13)
[2017-02-05] MEDS: VALPROIC ACID 250 MG/5 ML UDCUP TUBE SCH (20:14)
[2017-02-06] MEDS: AMPICILLIN SODIUM 1 GM in NS 100 ML IV SCH ×4 (01:26→17:37)
[2017-02-06] MEDS: ACETAMINOPHEN 650 MG/20.3 ML UDCUP TUBE PRN ×3 (02:21→16:51)
[2017-02-06 05:26] LABS: ADD DIFF? YES; ADD MORPH? NO; ADD SCAN? NO; ATYPICAL LYMPHOCYTE FLAG 40 (0-99); FRAGMENT RBC FLAG 0 (0-99); HEMATOCRIT 36.1 % (40.0-51.0); HEMOGLOBIN 12.1 g/dL (13.7-17.5); LEFT SHIFT FLG 60 (0-99); LIPEMIA HEMOLYSIS FLAG 80 (0-99); MEAN CELL HEMOGLOBIN CONCENTR. 33.5 g/dL (32.4-36.7); MEAN CELL VOLUME 92.6 fL (81.5-99.8); PLATELET CLUMPS FLAG 0 (0-99); PLATELET COUNT 182 10^3/uL (150-400); RED CELL DISTRIBUTION WIDTH 13.8 % (11.5-15.2)
[2017-02-06 05:32] LABS: ANION GAP 8 mEq/L (8-16); CALCIUM 8.7 mg/dL (8.5-10.4); CARBON DIOXIDE 24 mEq/l (22-31); CHLORIDE 105 mEq/L (97-110); CREATININE 0.8 mg/dL (0.7-1.3); GLOMERULAR FILTRATION RATE > 60; GLUCOSE 215 mg/dL (70-100); POTASSIUM 3.9 mEq/L (3.5-5.2); SODIUM 137 mEq/L (134-144)
[2017-02-06 05:58] LABS: PLATELET ESTIMATE ADEQUATE (ADEQ)
--- NOTE | 2017-02-06 08:05 | SOAPPROG ---
SOAP Progress Note Assessment/Plan: Assessment: 1. Patient with Dophoff feeding tube, tolerating 2. Patient on empiric treatment for strep pharyngitis. 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 3. Biopsies pending form EGD. Plan: 1. Continue on TF for now 2. Await esophageal biopsies 3. Continue supportive care 4. When clinically improved re-evaluate aspiration risk 02/06/17 08:05 Subjective: CC: Odynophagia, sore throat Patient reports throat pain improved. Did not like getting feeding tube in but is tolerating now. Patient is in good spirits with sense of humor, "this is a hell of a weight loss program" Objective: Vital Signs Temp Pulse Resp BP Pulse Ox 36.8 C 88 16 139/79 H 96 02/06/17 04:00 02/06/17 04:00 02/06/17 04:00 02/06/17 04:00 02/06/17 04:00 Microbiology 02/05/17 20:31 Gram Stain - Final Throat - Swab Laboratory Results 02/06/17 04:48 02/06/17 04:48 02/05/17 02/06/17 02/07/17 05:59 05:59 05:59 Intake Total 1823 1001 695 Balance 1823 1001 695 Generic Name Dose Route Start Last Admin Trade Name Freq PRN Reason Stop Dose Admin Acetaminophen 1,000 mg 02/02/17 14:02 02/05/17 02:27 Tylenol PO 08/01/17 14:01 1,000 mg Q6HRS PRN Administration Pain, Mild/Fever, Can Take PO Acetaminophen 650 mg 02/05/17 13:52 02/06/17 02:21 Tylenol 650/20.3ml Oral Liquid TUBE 08/04/17 13:50 650 mg Q4HRS PRN Administration Pain, Moderate Aripiprazole 20 mg 02/06/17 09:00 Abilify TUBE 08/01/17 16:29 DAILY JOHNNIE Enoxaparin Sodium 40 mg 02/03/17 09:00 02/05/17 10:53 Lovenox SC 08/02/17 08:59 40 mg DAILY JOHNNIE Administration Hydromorphone HCl 0.4 mg 02/05/17 13:44 Dilaudid IVP 02/15/17 13:43 Q4HRS PRN Pain, Severe Unable to Take PO Dextrose 250 mls @ 0 mls/hr 02/02/17 16:30 D10w IV 08/01/17 16:29 PRN PRN Hypoglycemia Protocol Wide Open Sodium Chloride 1,000 mls @ 50 mls/hr 02/04/17 11:30 02/05/17 15:11 Ns IV 08/03/17 11:29 1,000 mls CONT JOHNNIE Administration Lactated Ringer's 1,000 mls @ 25 mls/hr 02/05/17 08:30 Lr IV 08/04/17 08:29 CONT JOHNNIE Ampicillin Sodium 1 gm/ Sodium 100 mls @ 200 mls/hr 02/05/17 12:00 02/06/17 05:27 Chloride IV 03/07/17 11:59 100 mls Q6HRS JOHNNIE Administration Protocol Insulin Human Lispro 0 unit 02/02/17 18:00 02/05/17 19:25 Humalog Lispro SC 08/01/17 17:59 Not Given TIDMEAL JOHNNIE Protocol Levothyroxine Sodium 100 mcg 02/06/17 10:00 Synthroid Ivp Syringe IVP 08/05/17 09:59 DAILY10 JOHNNIE Lorazepam 0.5 - 1 mg 02/05/17 13:54 02/05/17 20:17 Ativan TUBE 08/01/17 15:47 1 mg DAILY PRN Administration Anxiety Lorazepam 0.5 - 1 mg 02/06/17 09:00 Ativan Oral Liquid PO 08/05/17 08:59 DAILY PRN ANXIETY Ondansetron HCl 4 mg 02/02/17 15:46 Zofran IVP 08/01/17 15:45 Q4HRS PRN Nausea/Vomiting, Can't Take PO Ondansetron HCl 4 mg 02/02/17 15:46 Zofran Odt PO 08/01/17 15:45 Q4HRS PRN Nausea/Vomiting, Use 1st Paroxetine HCl 20 mg 02/06/17 09:00 Paxil Oral Liquid TUBE 08/05/17 08:59 DAILY JOHNNIE Pravastatin Sodium 20 mg 02/05/17 21:00 02/05/17 20:13 Pravachol TUBE 08/01/17 20:59 20 mg HS JOHNNIE Administration Quetiapine Fumarate 100 mg 02/05/17 21:00 02/05/17 20:13 Seroquel TUBE 08/04/17 20:59 100 mg BID JOHNNIE Administration Quetiapine Fumarate 50 mg 02/05/17 21:00 02/05/17 20:13 Seroquel TUBE 08/04/17 20:59 50 mg BID JOHNNIE Administration Valproic Acid 500 mg 02/06/17 09:00 Depakene Oral Liquid TUBE 08/05/17 08:59 DAILY JOHNNIE Valproic Acid 1,000 mg 02/05/17 21:00 02/05/17 20:14 Depakene Oral Liquid TUBE 08/04/17 20:59 1,000 mg HS JOHNNIE Administration Discontinued Medications Generic Name Dose Route Start Last Admin Trade Name Freq PRN Reason Stop Dose Admin Acetaminophen 650 mg 02/02/17 15:46 Tylenol PO 08/01/17 15:45 Q4HRS PRN Pain, Mild/Fever, Can Take PO Acetaminophen 650 mg 02/05/17 13:51 Tylenol 650/20.3ml Oral Liquid PO 08/04/17 13:50 Q4HRS PRN Pain, Moderate Aripiprazole 20 mg 02/03/17 09:00 Abilify PO 08/02/17 08:59 DAILY JOHNNIE Aripiprazole 10 mg 02/02/17 16:30 Abilify PO 08/01/17 16:29 DAILY JOHNNIE Aripiprazole 20 mg 02/02/17 16:30 02/05/17 10:50 Abilify PO 08/01/17 16:29 20 mg DAILY JOHNNIE Administration Azithromycin 500 mg 02/02/17 08:59 02/02/17 09:28 Zithromax PO 02/02/17 09:00 500 mg EDNOW ONE Administration Protocol Benzocaine Confirm 02/05/17 12:46 Hurricaine [place] Administered 02/05/17 12:47 Dose 1 each MM .STK-MED ONE Divalproex Sodium 500 mg 02/03/17 09:00 02/05/17 10:51 Depakote PO 08/02/17 08:59 500 mg DAILY JOHNNIE Administration Divalproex Sodium 1,000 mg 02/02/17 21:00 02/04/17 20:18 Depakote PO 08/01/17 20:59 1,000 mg HS JOHNNIE Administration Fentanyl 25 - 50 mcg 02/05/17 09:30 Sublimaze IVP 02/05/17 10:30 Q5M PRN PACU, Pain Severe Fluconazole 200 mg 02/03/17 19:45 02/05/17 11:42 Diflucan PO 03/05/17 19:44 Not Given DAILY JOHNNIE Sodium Chloride 1,000 mls @ 0 mls/hr 02/02/17 07:45 02/02/17 08:07 Ns IV 02/02/17 07:46 1,000 mls ONCE ONE Administration Protocol Wide Open Sodium Chloride 1,000 mls @ 0 mls/hr 02/02/17 08:51 02/02/17 09:27 Ns IV 02/02/17 08:52 1,000 mls ONCE ONE Administration Protocol Wide Open Ceftriaxone Sodium/Dextrose 50 mls @ 100 mls/hr 02/02/17 08:59 02/02/17 09:28 Rocephin 1 Gm (Premix) IV 02/02/17 09:28 50 mls EDNOW ONE Administration Protocol Sodium Chloride 1,000 mls @ 75 mls/hr 02/02/17 16:00 02/03/17 21:50 Ns IV 02/04/17 05:19 1,000 mls CONT JOHNNIE Administration Ceftriaxone Sodium/Dextrose 50 mls @ 100 mls/hr 02/03/17 09:30 02/03/17 09:47 Rocephin 1 Gm (Premix) IV 03/05/17 09:29 50 mls DAILY JOHNNIE Administration Protocol Ertapenem 1 gm/ Sodium 100 mls @ 200 mls/hr 02/03/17 15:00 02/03/17 15:30 Chloride IV 03/05/17 14:59 100 mls DAILY JOHNNIE Administration Protocol Iopamidol Confirm 02/03/17 15:56 Isovue-370 Administered 02/03/17 15:57 Dose 100 ml IV .STK-MED ONE Iopamidol Confirm 02/03/17 16:21 Isovue-370 Administered 02/03/17 16:22 Dose 100 ml IV .STK-MED ONE Labetalol HCl 5 - 10 mg 02/05/17 09:30 Trandate Injection IVP 02/05/17 10:30 Q10M PRN PACU, Hypertension Levothyroxine Sodium 200 mcg 02/03/17 06:00 02/05/17 04:38 Synthroid PO 08/02/17 05:59 200 mcg DAILY06 JOHNNIE Administration Lidocaine Confirm 02/05/17 12:31 Lidocaine 2% Jelly Administered 02/05/17 12:32 Dose 10 montserrat .ROUTE .STK-MED ONE Lisinopril 10 mg 02/03/17 09:00 Zestril PO 08/02/17 08:59 DAILY JOHNNIE Lorazepam 0.5 - 1 mg 02/02/17 15:48 02/04/17 20:12 Ativan PO 08/01/17 15:47 1 mg DAILY PRN Administration Anxiety Naloxone HCl 0.1 mg 02/05/17 09:30 Narcan IVP 02/05/17 10:30 Q2M PRN PACU Resp Rate <10/min Paroxetine HCl 20 mg 02/02/17 16:30 02/05/17 10:51 Paxil PO 08/01/17 16:29 20 mg DAILY JOHNNIE Administration Paroxetine HCl 20 mg 02/06/17 09:00 Paxil PO 08/01/17 16:29 DAILY JOHNNIE Pravastatin Sodium 20 mg 02/02/17 21:00 02/04/17 20:13 Pravachol PO 08/01/17 20:59 20 mg HS JOHNNIE Administration Propofol Confirm 02/05/17 09:01 Diprivan Administered 02/05/17 09:02 Dose 200 mg .ROUTE .STK-MED ONE Quetiapine Fumarate 300 mg 02/02/17 21:00 02/04/17 20:12 Seroquel PO 08/01/17 20:59 300 mg HS JOHNNIE Administration Tamsulosin HCl 0.4 mg 02/03/17 09:00 02/05/17 10:51 Flomax PO 08/02/17 08:59 0.4 mg DAILY JOHNNIE Administration Physical Exam - Physical Exam General Appearance: alert, no apparent distress Respiratory: lungs clear, normal breath sounds Cardiac/Chest: regular rate, rhythm Abdomen: normal bowel sounds, non-tender, soft Skin: normal color, warm/dry Neuro/Psych: alert, normal mood/affect, oriented x 3 ICD10 Worksheet Patient Problems: Problems Problem Status Onset Bronchitis Acute Dehydration Acute Pharyngitis Acute Tachycardia Acute Diabetes mellitus type 2 Active Obesity Active Osteoarthritis of knee Acute
[2017-02-06] MEDS ORDERED: PARoxetine HCL 20 MG TAB PO SCH (09:00)
[2017-02-06] MEDS ORDERED: LORazepam 1 MG/0.5 ML UDSYR PO PRN (09:00)
[2017-02-06] MEDS: QUEtiapine FUMARATE 100 MG TAB TUBE SCH ×2 (10:27→21:06)
[2017-02-06] MEDS: VALPROIC ACID 250 MG/5 ML UDCUP TUBE SCH ×2 (10:27→21:05)
[2017-02-06] MEDS: QUEtiapine FUMARATE 50 MG TAB TUBE SCH ×2 (10:27→21:06)
[2017-02-06] MEDS: ARIPiprazole 10 MG TAB TUBE SCH (10:31)
[2017-02-06] MEDS: PARoxetine HCL 10 MG/5 ML UDL TUBE SCH (10:32)
[2017-02-06] MEDS: LEVOTHYROXINE 100 MCG/5 ML SYR IVP SCH (10:33)
--- NOTE | 2017-02-06 11:05 | HOSPPROG ---
Hospitalist Progress Note Assessment/Plan: 71-year-old male with multiple comorbidities including Parkinson's and essentially bed-bound presented with weakness and pharyngitis * pharyngitis/esophagitis * thought initially to have pharyngitis only but CT scan showing significant esophagitis, EGD showed non-specific esophagitis * caregiver had strep - rapid strep was negative here, throat Cx pending * Cont Ampicillin empirically. * ?if this was all result of strep * sepsis / tachycardia - improved, lactate normalized. * dysphagia - VFSS showed mod-severe dysphagia. dobhoff placed 02/05, tube feeds started * may need PEG tube in the next few days if not improving * pt too sedated * acute diastolic heart failure - CXR c/w volume overload and pt has increased O2 requirement with peripheral edema -IV Lasix now -resume oral Lasix tomorrow, though may need further IV diuresis -follow I&O's, daily weights * possible small pulmonary embolism * at this point will not anticoagulate as it is a soft call and symptoms do not necessarily support this * Will get ultrasound of legs * consider repeat CT scanning prior to discharge with better contrast timing * type 2 diabetes - bg's mostly 100's * chronic venous stasis changes * essentially bed-bound * multiple decubitus ulcers * obstructive sleep apnea * Parkinson's * DVT prophylaxis - Lovenox Subjective: PT is sedated after receiving 1 mg Ativan (dose since reduced). He denies pain. He coughs quite a bit with deep breath. No fevers. He has a feeding tube, but states he would not want a PEG. Objective: Vital Signs Temp Pulse Resp BP Pulse Ox 36.4 C 85 18 133/78 H 94 02/06/17 08:00 02/06/17 08:00 02/06/17 08:00 02/06/17 08:00 02/06/17 08:00 Microbiology 02/05/17 20:31 Gram Stain - Final Throat - Swab Laboratory Results 02/06/17 04:48 02/06/17 04:48 02/05/17 02/06/17 02/07/17 05:59 05:59 05:59 Intake Total 1823 1001 695 Output Total 350 Balance 1823 1001 345 - Physical Exam Constitutional: no apparent distress Eyes: PERRL Ears, Nose, Mouth, Throat: moist mucous membranes Cardiovascular: regular rate and rhythym Respiratory: no respiratory distress, inspiratory crackles Gastrointestinal: normoactive bowel sounds, soft, non-tender abdomen Skin: warm Musculoskeletal: other (2+ LE pitting edema) Psychiatric: encephalopathic ICD10 Worksheet Patient Problems: Problems Problem Status Onset Bronchitis Acute Dehydration Acute Pharyngitis Acute Tachycardia Acute Diabetes mellitus type 2 Active Obesity Active Osteoarthritis of knee Acute
[2017-02-06] MEDS ORDERED: FUROSEMIDE 40 MG/4 ML VIAL IVP ONE (11:44)
[2017-02-06] MEDS: INSULIN LISPRO 100 UNIT/ML SC SCH ×3 (11:58→18:37)
[2017-02-06] MEDS: PRAVASTATIN SODIUM 20 MG TAB TUBE SCH (21:05)
[2017-02-07] MEDS: AMPICILLIN SODIUM 1 GM in NS 100 ML IV SCH ×6 (00:05→23:09)
[2017-02-07] MEDS: LORazepam 1 MG TAB TUBE PRN (04:41)
[2017-02-07] MEDS: ACETAMINOPHEN 650 MG/20.3 ML UDCUP TUBE PRN (07:45)
[2017-02-07] MEDS: VALPROIC ACID 250 MG/5 ML UDCUP TUBE SCH ×2 (07:48→21:11)
[2017-02-07] MEDS: PARoxetine HCL 10 MG/5 ML UDL TUBE SCH (07:48)
[2017-02-07] MEDS: ARIPiprazole 10 MG TAB TUBE SCH (07:54)
[2017-02-07] MEDS: QUEtiapine FUMARATE 50 MG TAB TUBE SCH ×2 (07:55→21:11)
[2017-02-07] MEDS: QUEtiapine FUMARATE 100 MG TAB TUBE SCH ×2 (07:56→21:11)
[2017-02-07] MEDS: ENOXAPARIN 40 MG/0.4 ML SYR SC SCH (08:03)
--- NOTE | 2017-02-07 08:42 | SOAPPROG ---
SOAP Progress Note Assessment/Plan: Assessment: 1. Patient with Dophoff feeding tube. 2. Patient on empiric treatment for strep pharyngitis. Patient reports no improvement of throat pain 3. Biopsies from esophagus were non-specific. No evidence of fungal infection, CMV or HSV. Plan: 1. Continue on TF for now 2. If continued problems with throat pain and not responsive to PCN for strep would recommend an ENT consult 3 Will sign off for now. If patient unable to take PO and require local intermodal truck driver enteral feeding please call us for possible PEG. I would hold off on PEG at this point to see if an resolution of acute process. 02/07/17 08:45 Subjective: CC: Pharyngitis, Patient still with c/o throat pain. Objective: Vital Signs Temp Pulse Resp BP Pulse Ox 37.1 C 97 16 129/82 H 95 02/07/17 08:00 02/07/17 08:00 02/07/17 08:00 02/07/17 08:00 02/07/17 08:00 Microbiology 02/05/17 20:31 Gram Stain - Final Throat - Swab Laboratory Results 02/06/17 04:48 02/06/17 04:48 02/06/17 02/07/17 02/08/17 05:59 05:59 05:59 Intake Total 1001 2241 Output Total 353 Balance 1001 1888 Generic Name Dose Route Start Last Admin Trade Name Freq PRN Reason Stop Dose Admin Acetaminophen 1,000 mg 02/02/17 14:02 02/05/17 02:27 Tylenol PO 08/01/17 14:01 1,000 mg Q6HRS PRN Administration Pain, Mild/Fever, Can Take PO Acetaminophen 650 mg 02/05/17 13:52 02/07/17 07:45 Tylenol 650/20.3ml Oral Liquid TUBE 08/04/17 13:50 650 mg Q4HRS PRN Administration Pain, Moderate Aripiprazole 20 mg 02/06/17 09:00 02/07/17 07:54 Abilify TUBE 08/01/17 16:29 20 mg DAILY JOHNNIE Administration Enoxaparin Sodium 40 mg 02/03/17 09:00 02/07/17 08:03 Lovenox SC 08/02/17 08:59 40 mg DAILY JOHNNIE Administration Furosemide 40 mg 02/07/17 09:00 02/07/17 07:56 Lasix TUBE 08/06/17 08:59 40 mg DAILY JOHNNIE Administration Furosemide 40 mg 02/07/17 09:00 Lasix Injection IVP 08/06/17 08:59 BID@0900,1500 JOHNNIE Hydromorphone HCl 0.4 mg 02/05/17 13:44 Dilaudid IVP 02/15/17 13:43 Q4HRS PRN Pain, Severe Unable to Take PO Dextrose 250 mls @ 0 mls/hr 02/02/17 16:30 D10w IV 08/01/17 16:29 PRN PRN Hypoglycemia Protocol Wide Open Ampicillin Sodium 1 gm/ Sodium 100 mls @ 200 mls/hr 02/05/17 12:00 02/07/17 05:57 Chloride IV 03/07/17 11:59 100 mls Q6HRS JOHNNIE Administration Protocol Insulin Human Lispro 0 unit 02/02/17 18:00 02/06/17 18:37 Humalog Lispro SC 08/01/17 17:59 2 units TIDMEAL JOHNNIE Administration Protocol Levothyroxine Sodium 100 mcg 02/06/17 10:00 02/06/17 10:33 Synthroid Ivp Syringe IVP 08/05/17 09:59 100 mcg DAILY10 JOHNNIE Administration Lorazepam 0.5 mg 02/06/17 11:41 02/07/17 04:41 Ativan TUBE 08/01/17 15:47 0.5 mg DAILY PRN Administration Anxiety Ondansetron HCl 4 mg 02/02/17 15:46 Zofran IVP 08/01/17 15:45 Q4HRS PRN Nausea/Vomiting, Can't Take PO Ondansetron HCl 4 mg 02/02/17 15:46 Zofran Odt PO 08/01/17 15:45 Q4HRS PRN Nausea/Vomiting, Use 1st Paroxetine HCl 20 mg 02/06/17 09:00 02/07/17 07:48 Paxil Oral Liquid TUBE 08/05/17 08:59 20 mg DAILY JOHNNIE Administration Pravastatin Sodium 20 mg 02/05/17 21:00 02/06/17 21:05 Pravachol TUBE 08/01/17 20:59 20 mg HS JOHNNIE Administration Quetiapine Fumarate 100 mg 02/05/17 21:00 02/07/17 07:56 Seroquel TUBE 08/04/17 20:59 100 mg BID JOHNNIE Administration Quetiapine Fumarate 50 mg 02/05/17 21:00 02/07/17 07:55 Seroquel TUBE 08/04/17 20:59 50 mg BID JOHNNIE Administration Valproic Acid 500 mg 02/06/17 09:00 02/07/17 07:48 Depakene Oral Liquid TUBE 08/05/17 08:59 500 mg DAILY JOHNNIE Administration Valproic Acid 1,000 mg 02/05/17 21:00 02/06/17 21:05 Depakene Oral Liquid TUBE 08/04/17 20:59 1,000 mg HS JOHNNIE Administration Discontinued Medications Generic Name Dose Route Start Last Admin Trade Name Freq PRN Reason Stop Dose Admin Acetaminophen 650 mg 02/02/17 15:46 Tylenol PO 08/01/17 15:45 Q4HRS PRN Pain, Mild/Fever, Can Take PO Acetaminophen 650 mg 02/05/17 13:51 Tylenol 650/20.3ml Oral Liquid PO 08/04/17 13:50 Q4HRS PRN Pain, Moderate Aripiprazole 20 mg 02/03/17 09:00 Abilify PO 08/02/17 08:59 DAILY JOHNNIE Aripiprazole 10 mg 02/02/17 16:30 Abilify PO 08/01/17 16:29 DAILY JOHNNIE Aripiprazole 20 mg 02/02/17 16:30 02/05/17 10:50 Abilify PO 08/01/17 16:29 20 mg DAILY JOHNNIE Administration Azithromycin 500 mg 02/02/17 08:59 02/02/17 09:28 Zithromax PO 02/02/17 09:00 500 mg EDNOW ONE Administration Protocol Benzocaine Confirm 02/05/17 12:46 Hurricaine [place] Administered 02/05/17 12:47 Dose 1 each MM .STK-MED ONE Divalproex Sodium 500 mg 02/03/17 09:00 02/05/17 10:51 Depakote PO 08/02/17 08:59 500 mg DAILY JOHNNIE Administration Divalproex Sodium 1,000 mg 02/02/17 21:00 02/04/17 20:18 Depakote PO 08/01/17 20:59 1,000 mg HS JOHNNIE Administration Fentanyl 25 - 50 mcg 02/05/17 09:30 Sublimaze IVP 02/05/17 10:30 Q5M PRN PACU, Pain Severe Fluconazole 200 mg 02/03/17 19:45 02/05/17 11:42 Diflucan PO 03/05/17 19:44 Not Given DAILY JOHNNIE Furosemide 40 mg 02/06/17 11:44 02/06/17 13:30 Lasix Injection IVP 02/06/17 11:45 40 mg ONCE ONE Administration Sodium Chloride 1,000 mls @ 0 mls/hr 02/02/17 07:45 02/02/17 08:07 Ns IV 02/02/17 07:46 1,000 mls ONCE ONE Administration Protocol Wide Open Sodium Chloride 1,000 mls @ 0 mls/hr 02/02/17 08:51 02/02/17 09:27 Ns IV 02/02/17 08:52 1,000 mls ONCE ONE Administration Protocol Wide Open Ceftriaxone Sodium/Dextrose 50 mls @ 100 mls/hr 02/02/17 08:59 02/02/17 09:28 Rocephin 1 Gm (Premix) IV 02/02/17 09:28 50 mls EDNOW ONE Administration Protocol Sodium Chloride 1,000 mls @ 75 mls/hr 02/02/17 16:00 02/03/17 21:50 Ns IV 02/04/17 05:19 1,000 mls CONT JOHNNIE Administration Ceftriaxone Sodium/Dextrose 50 mls @ 100 mls/hr 02/03/17 09:30 02/03/17 09:47 Rocephin 1 Gm (Premix) IV 03/05/17 09:29 50 mls DAILY JOHNNIE Administration Protocol Ertapenem 1 gm/ Sodium 100 mls @ 200 mls/hr 02/03/17 15:00 02/03/17 15:30 Chloride IV 03/05/17 14:59 100 mls DAILY JOHNNIE Administration Protocol Sodium Chloride 1,000 mls @ 50 mls/hr 02/04/17 11:30 02/05/17 15:11 Ns IV 08/03/17 11:29 1,000 mls CONT JOHNNIE Administration Lactated Ringer's 1,000 mls @ 25 mls/hr 02/05/17 08:30 Lr IV 08/04/17 08:29 CONT JOHNNIE Iopamidol Confirm 02/03/17 15:56 Isovue-370 Administered 02/03/17 15:57 Dose 100 ml IV .STK-MED ONE Iopamidol Confirm 02/03/17 16:21 Isovue-370 Administered 02/03/17 16:22 Dose 100 ml IV .STK-MED ONE Labetalol HCl 5 - 10 mg 02/05/17 09:30 Trandate Injection IVP 02/05/17 10:30 Q10M PRN PACU, Hypertension Levothyroxine Sodium 200 mcg 02/03/17 06:00 02/05/17 04:38 Synthroid PO 08/02/17 05:59 200 mcg DAILY06 JOHNNIE Administration Lidocaine Confirm 02/05/17 12:31 Lidocaine 2% Jelly Administered 02/05/17 12:32 Dose 10 montserrat .ROUTE .STK-MED ONE Lisinopril 10 mg 02/03/17 09:00 Zestril PO 08/02/17 08:59 DAILY JOHNNIE Lorazepam 0.5 - 1 mg 02/02/17 15:48 02/04/17 20:12 Ativan PO 08/01/17 15:47 1 mg DAILY PRN Administration Anxiety Lorazepam 0.5 - 1 mg 02/05/17 13:54 02/05/17 20:17 Ativan TUBE 08/01/17 15:47 1 mg DAILY PRN Administration Anxiety Lorazepam 0.5 - 1 mg 02/06/17 09:00 02/06/17 10:22 Ativan Oral Liquid PO 08/05/17 08:59 1 mg DAILY PRN Administration ANXIETY Naloxone HCl 0.1 mg 02/05/17 09:30 Narcan IVP 02/05/17 10:30 Q2M PRN PACU Resp Rate <10/min Paroxetine HCl 20 mg 02/02/17 16:30 02/05/17 10:51 Paxil PO 08/01/17 16:29 20 mg DAILY JOHNNIE Administration Paroxetine HCl 20 mg 02/06/17 09:00 Paxil PO 08/01/17 16:29 DAILY JOHNNIE Pravastatin Sodium 20 mg 02/02/17 21:00 02/04/17 20:13 Pravachol PO 08/01/17 20:59 20 mg HS JOHNNIE Administration Propofol Confirm 02/05/17 09:01 Diprivan Administered 02/05/17 09:02 Dose 200 mg .ROUTE .STK-MED ONE Quetiapine Fumarate 300 mg 02/02/17 21:00 02/04/17 20:12 Seroquel PO 08/01/17 20:59 300 mg HS JOHNNIE Administration Tamsulosin HCl 0.4 mg 02/03/17 09:00 02/05/17 10:51 Flomax PO 08/02/17 08:59 0.4 mg DAILY JOHNNIE Administration Physical Exam - Physical Exam General Appearance: alert, no apparent distress EENT: other (pharnyx, patient not able to open his motuh wide. Erythema of the pharnyx. ) Neck: non-tender Respiratory: lungs clear Cardiac/Chest: regular rate, rhythm Abdomen: normal bowel sounds, non-tender, soft Skin: normal color, warm/dry Neuro/Psych: alert, normal mood/affect, oriented x 3 ICD10 Worksheet Patient Problems: Problems Problem Status Onset Bronchitis Acute Dehydration Acute Pharyngitis Acute Tachycardia Acute Diabetes mellitus type 2 Active Obesity Active Osteoarthritis of knee Acute
[2017-02-07] MEDS ORDERED: FUROSEMIDE 40 MG/4 ML VIAL IVP SCH (09:00)
[2017-02-07] MEDS ORDERED: FUROSEMIDE 40 MG TAB TUBE SCH (09:00)
[2017-02-07] MEDS: INSULIN LISPRO 100 UNIT/ML SC SCH ×3 (09:01→17:53)
[2017-02-07] MEDS: LEVOTHYROXINE 100 MCG/5 ML SYR IVP SCH (11:09)
--- NOTE | 2017-02-07 12:12 | HOSPPROG ---
Hospitalist Progress Note Assessment/Plan: 71-year-old male with multiple comorbidities including Parkinson's and essentially bed-bound presented with weakness and pharyngitis * pharyngitis/esophagitis - some improvement * thought initially to have pharyngitis only but CT scan showing significant esophagitis, EGD showed non-specific esophagitis * caregiver had strep - rapid strep was negative here, throat Cx pending * Cont Ampicillin empirically. * ?if this was all result of strep * sepsis / tachycardia - improved, lactate normalized. * dysphagia - VFSS showed mod-severe dysphagia. dobhoff placed 02/05, tube feeds started * may need PEG tube in the next few days if not improving * d/w FACILITY SECURITY OFFICER who cleared him for trials of ice chips * oral thrush - start diflucan * acute diastolic heart failure - CXR c/w volume overload and pt has increased O2 requirement with peripheral edema -Cont IV Lasix -follow I&O's, daily weights * possible small pulmonary embolism * at this point will not anticoagulate as it is a soft call and symptoms do not necessarily support this * b/l LE duplex neg for DVT * type 2 diabetes - bg's mostly 100's * chronic venous stasis changes * essentially bed-bound * multiple decubitus ulcers * obstructive sleep apnea * 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 Speech saw him today and he will have trial of ice chips. No CP or SOB. LE edema persists. Objective: Vital Signs Temp Pulse Resp BP Pulse Ox 36.6 C 80 16 145/91 H 92 02/07/17 11:10 02/07/17 11:10 02/07/17 11:10 02/07/17 11:10 02/07/17 11:10 Microbiology 02/05/17 20:31 Gram Stain - Final Throat - Swab Laboratory Results 02/06/17 04:48 02/06/17 04:48 02/06/17 02/07/17 02/08/17 05:59 05:59 05:59 Intake Total 1001 2241 Output Total 353 325 Balance 1001 8524 -114 - Physical Exam Constitutional: no apparent distress Eyes: PERRL Ears, Nose, Mouth, Throat: moist mucous membranes Cardiovascular: regular rate and rhythym Respiratory: no respiratory distress, inspiratory crackles Gastrointestinal: normoactive bowel sounds, soft, non-tender abdomen Skin: warm Musculoskeletal: other (B/L 2+ LE pitting edema) Neurologic: AAOx3 Psychiatric: interacting appropriately ICD10 Worksheet Patient Problems: Problems Problem Status Onset Bronchitis Acute Dehydration Acute Pharyngitis Acute Tachycardia Acute Diabetes mellitus type 2 Active Obesity Active Osteoarthritis of knee Acute
[2017-02-07] MEDS: FUROSEMIDE 40 MG/4 ML VIAL IVP SCH (14:39)
[2017-02-07] MEDS: FLUCONAZOLE 100 MG TAB PO SCH (14:42)
[2017-02-07] MEDS: ACETAMINOPHEN 500 MG TAB PO PRN (14:42)
[2017-02-07] MEDS ORDERED: POTASSIUM CL 20 MEQ TAB PO SCH (17:00)
[2017-02-07] MEDS: POTASSIUM CL 20 MEQ/15 ML UDCUP TUBE SCH (18:41)
[2017-02-07] MEDS: PRAVASTATIN SODIUM 20 MG TAB TUBE SCH (21:11)
[2017-02-07] MEDS ORDERED: LORazepam 0.5 MG TAB TUBE ONE (22:15)
[2017-02-08 06:16] LABS: ANION GAP 8 mEq/L (8-16); CALCIUM 9.5 mg/dL (8.5-10.4); CARBON DIOXIDE 29 mEq/l (22-31); CHLORIDE 101 mEq/L (97-110); GLOMERULAR FILTRATION RATE > 60; GLUCOSE 166 mg/dL (70-100); POTASSIUM 3.9 mEq/L (3.5-5.2); SODIUM 138 mEq/L (134-144)
[2017-02-08] MEDS: AMPICILLIN SODIUM 1 GM in NS 100 ML IV SCH ×4 (06:20→23:42)
[2017-02-08] MEDS: POTASSIUM CL 20 MEQ/15 ML UDCUP TUBE SCH (09:07)
[2017-02-08] MEDS: VALPROIC ACID 250 MG/5 ML UDCUP TUBE SCH ×2 (09:08→21:06)
[2017-02-08] MEDS: ARIPiprazole 10 MG TAB TUBE SCH (09:08)
[2017-02-08] MEDS: INSULIN LISPRO 100 UNIT/ML SC SCH ×3 (09:08→18:05)
[2017-02-08] MEDS: QUEtiapine FUMARATE 50 MG TAB TUBE SCH ×2 (09:09→21:06)
[2017-02-08] MEDS: FLUCONAZOLE 100 MG TAB PO SCH (09:09)
[2017-02-08] MEDS: QUEtiapine FUMARATE 100 MG TAB TUBE SCH ×2 (09:09→21:09)
[2017-02-08] MEDS: ENOXAPARIN 40 MG/0.4 ML SYR SC SCH (09:09)
[2017-02-08] MEDS: PARoxetine HCL 10 MG/5 ML UDL TUBE SCH (09:58)
[2017-02-08] MEDS: FUROSEMIDE 40 MG/4 ML VIAL IVP SCH ×2 (09:58→16:29)
[2017-02-08] MEDS: LEVOTHYROXINE 100 MCG/5 ML SYR IVP SCH (09:58)
[2017-02-08] MEDS: ACETAMINOPHEN 650 MG/20.3 ML UDCUP TUBE PRN (10:00)
--- NOTE | 2017-02-08 11:17 | HOSPPROG ---
Hospitalist Progress Note Assessment/Plan: 71-year-old male with multiple comorbidities including Parkinson's and essentially bed-bound presented with weakness and pharyngitis * pharyngitis/esophagitis - pain improved * thought initially to have pharyngitis only but CT scan showing significant esophagitis, EGD showed non-specific esophagitis * caregiver had strep - rapid strep was negative here, throat Cx pending * Cont Ampicillin empirically, day 4 (he did receive 2 days of ceftriaxone and 1 dose of invanz prior to this). change to po when able to swallow. * ?if this was all result of strep * sepsis / tachycardia - improved, lactate normalized. * dysphagia - VFSS showed mod-severe dysphagia. dobhoff placed 02/05, tube feeds started * may need PEG tube in the next few days if not improving * d/w NETWORK AND THREAT SUPPORT SPECIALIST who cleared him for trials of ice chips * he did make progress with speech therapy today though remains NPO. he does not want a PEG. * oral thrush - restart diflucan, day 2 (received several doses last week too) * acute diastolic heart failure - CXR c/w volume overload and pt had increased O2 requirement with peripheral edema. O2 requirement improving, though still with edema and e/o volume overload. -Cont IV Lasix -I&O's not accurate due to incontinence. weights are also inconsistent. -may be ready to change back to oral / tube lasix tomorrow. 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 Says throat pain is much improved. No fevers. He wants to eat. Working with speech on his swallow function due to aspiration seen on VFSS. Objective: Vital Signs Temp Pulse Resp BP Pulse Ox 36.6 C 77 14 152/75 H 92 02/08/17 08:46 02/08/17 08:46 02/08/17 08:46 02/08/17 08:46 02/08/17 08:46 Microbiology 02/05/17 20:31 Gram Stain - Final Throat - Swab Throat Culture - Final Laboratory Results 02/06/17 04:48 02/08/17 04:50 02/07/17 02/08/17 02/09/17 05:59 05:59 05:59 Intake Total 2241 710 Output Total 353 1400 Balance 6525 -373 - Physical Exam Constitutional: no apparent distress Eyes: PERRL Ears, Nose, Mouth, Throat: moist mucous membranes Cardiovascular: regular rate and rhythym Respiratory: no respiratory distress, inspiratory crackles Gastrointestinal: normoactive bowel sounds, soft, non-tender abdomen Skin: warm Musculoskeletal: other (2+ b/l LE edema) Neurologic: AAOx3 Psychiatric: interacting appropriately ICD10 Worksheet Patient Problems: Problems Problem Status Onset Bronchitis Acute Dehydration Acute Pharyngitis Acute Tachycardia Acute Diabetes mellitus type 2 Active Obesity Active Osteoarthritis of knee Acute
[2017-02-08] MEDS: HYDROmorphONE/DILAUDID 1 MG/ML SYR IVP PRN (18:13)
[2017-02-08] MEDS: PRAVASTATIN SODIUM 20 MG TAB TUBE SCH (21:06)
[2017-02-08] MEDS: LORazepam 1 MG TAB TUBE PRN (22:27)
[2017-02-09] MEDS: AMPICILLIN SODIUM 1 GM in NS 100 ML IV SCH ×4 (05:25→23:40)
[2017-02-09 05:54] LABS: ANION GAP 12 mEq/L (8-16); CALCIUM 9.5 mg/dL (8.5-10.4); CARBON DIOXIDE 26 mEq/l (22-31); CHLORIDE 99 mEq/L (97-110); GLOMERULAR FILTRATION RATE > 60; GLUCOSE 233 mg/dL (70-100); SODIUM 137 mEq/L (134-144)
[2017-02-09] MEDS: VALPROIC ACID 250 MG/5 ML UDCUP TUBE SCH ×2 (09:21→21:32)
[2017-02-09] MEDS: ACETAMINOPHEN 650 MG/20.3 ML UDCUP TUBE PRN (09:22)
[2017-02-09] MEDS: POTASSIUM CL 20 MEQ/15 ML UDCUP TUBE SCH (09:28)
[2017-02-09] MEDS: FLUCONAZOLE 100 MG TAB PO SCH (09:29)
[2017-02-09] MEDS: ENOXAPARIN 40 MG/0.4 ML SYR SC SCH (09:30)
[2017-02-09] MEDS: ARIPiprazole 10 MG TAB TUBE SCH (09:30)
[2017-02-09] MEDS: FUROSEMIDE 40 MG/4 ML VIAL IVP SCH ×2 (09:30→16:11)
[2017-02-09] MEDS: INSULIN LISPRO 100 UNIT/ML SC SCH ×3 (09:31→19:18)
[2017-02-09] MEDS: QUEtiapine FUMARATE 50 MG TAB TUBE SCH ×2 (09:31→21:33)
[2017-02-09] MEDS: QUEtiapine FUMARATE 100 MG TAB TUBE SCH ×2 (09:32→21:33)
[2017-02-09] MEDS: PARoxetine HCL 10 MG/5 ML UDL TUBE SCH (09:40)
--- NOTE | 2017-02-09 10:39 | HOSPPROG ---
Hospitalist Progress Note Assessment/Plan: 71-year-old male with multiple comorbidities including Parkinson's and essentially bed-bound presented with weakness and pharyngitis * pharyngitis/esophagitis - pain improved * thought initially to have pharyngitis only but CT scan showed esophagitis, EGD - non-specific esophagitis * caregiver had strep though rapid strep and throat Cx neg (latter taken after atbx given) * Cont Ampicillin empirically, day 5. He did receive 2 days of ceftriaxone and 1 dose of invanz prior to this. Change to po when able to swallow. * ?if this was all result of strep * sepsis / tachycardia - improved, lactate normalized. * dysphagia - VFSS showed mod-severe dysphagia. dobhoff placed 02/05, tube feeds started * may need PEG tube in the next few days if not improving * d/w ZIGZAG MACHINE OPERATOR who cleared him for trials of ice chips * he is making progress with speech therapy today though remains NPO. he does not want a PEG. * I'm optimistic he'll regain swallow function soon, doing much better * oral thrush - restarted diflucan, day 3. He received several doses last week too. * acute diastolic heart failure - CXR c/w volume overload and pt had increased O2 requirement with peripheral edema. On room air today. -I&O's not accurate due to incontinence. weights are also inconsistent. 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 No more throat pain. No CP or SOB. Feels less puffy. Wants the dobhoff tube out, wants to eat. Motivated to get better. Does not want PEG. Objective: Vital Signs Temp Pulse Resp BP Pulse Ox 36.5 C 92 18 141/78 H 92 02/09/17 07:24 02/09/17 07:24 02/09/17 07:24 02/09/17 07:24 02/09/17 07:24 Laboratory Results 02/06/17 04:48 02/09/17 05:02 02/08/17 02/09/17 02/10/17 05:59 05:59 05:59 Intake Total 710 Output Total 1400 750 Balance -690 -750 - Physical Exam Constitutional: no apparent distress Eyes: PERRL Ears, Nose, Mouth, Throat: moist mucous membranes Cardiovascular: regular rate and rhythym Respiratory: no respiratory distress, clear to auscultation Gastrointestinal: normoactive bowel sounds, soft, non-tender abdomen Skin: warm Musculoskeletal: other (brawny b/l LE venous stasis changes, edema much improved ) Neurologic: AAOx3 Psychiatric: interacting appropriately ICD10 Worksheet Patient Problems: Problems Problem Status Onset Bronchitis Acute Dehydration Acute Pharyngitis Acute Tachycardia Acute Diabetes mellitus type 2 Active Obesity Active Osteoarthritis of knee Acute
[2017-02-09] MEDS: LEVOTHYROXINE 100 MCG/5 ML SYR IVP SCH (10:57)
[2017-02-09] MEDS: LORazepam 1 MG TAB TUBE PRN (21:32)
[2017-02-09] MEDS: PRAVASTATIN SODIUM 20 MG TAB TUBE SCH (21:32)
[2017-02-10] MEDS: AMPICILLIN SODIUM 1 GM in NS 100 ML IV SCH ×4 (05:19→23:22)
[2017-02-10] MEDS: INSULIN LISPRO 100 UNIT/ML SC SCH ×3 (09:38→17:15)
[2017-02-10] MEDS: ENOXAPARIN 40 MG/0.4 ML SYR SC SCH (09:39)
[2017-02-10] MEDS: LEVOTHYROXINE 100 MCG/5 ML SYR IVP SCH (09:40)
[2017-02-10] MEDS: POTASSIUM CL 20 MEQ/15 ML UDCUP TUBE SCH (09:44)
[2017-02-10] MEDS: VALPROIC ACID 250 MG/5 ML UDCUP TUBE SCH ×2 (09:44→21:48)
[2017-02-10] MEDS: PARoxetine HCL 10 MG/5 ML UDL TUBE SCH (09:45)
[2017-02-10] MEDS: ARIPiprazole 10 MG TAB TUBE SCH (10:35)
[2017-02-10] MEDS: QUEtiapine FUMARATE 100 MG TAB TUBE SCH ×2 (10:35→21:49)
[2017-02-10] MEDS: QUEtiapine FUMARATE 50 MG TAB TUBE SCH ×2 (10:35→21:48)
[2017-02-10] MEDS: FLUCONAZOLE 100 MG TAB PO SCH (10:36)
[2017-02-10] MEDS: FUROSEMIDE 40 MG/4 ML VIAL IVP SCH (11:12)
[2017-02-10] MEDS: FUROSEMIDE 40 MG TAB TUBE SCH (12:04)
[2017-02-10] MEDS: LANSOPRAZOLE SUSP 30MG/10ML UDSYR (Adult) TUBE SCH (12:05)
--- NOTE | 2017-02-10 14:22 | HOSPPROG ---
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 * Bipolar Subjective: No complaints - hopefull that tube will come out soon Objective: Vital Signs Temp Pulse Resp BP Pulse Ox 36.6 C 94 20 132/82 H 90 L 02/10/17 08:00 02/10/17 08:00 02/10/17 08:00 02/10/17 08:00 02/10/17 08:00 Laboratory Results 02/06/17 04:48 02/09/17 05:02 02/09/17 02/10/17 02/11/17 05:59 05:59 05:59 Intake Total 240 260 Output Total 750 750 50 Balance -750 -510 210 CTA chest reviewed - poor bolus timing, possible peripheral PE in 2 lobes CXR viewed, my personal interpretation is - possible CHF, very mild - Physical Exam Constitutional: no apparent distress, appears nourished, not in pain Cardiovascular: regular rate and rhythym, no murmur, rub, or gallop Respiratory: no respiratory distress, no rales or rhonchi, clear to auscultation Gastrointestinal: normoactive bowel sounds, soft, non-tender abdomen, no palpable masses Skin: no rashes or abrasions, no fluctuance, no induration Neurologic: AAOx3, sensation intact bilaterally Psychiatric: interacting appropriately, not anxious, not encephalopathic, thought process linear ICD10 Worksheet Patient Problems: Problems Problem Status Onset Bronchitis Acute Dehydration Acute Pharyngitis Acute Tachycardia Acute Diabetes mellitus type 2 Active Obesity Active Osteoarthritis of knee Acute
[2017-02-10] MEDS: ONDANSETRON DISINTEGRATING 4 MG TAB PO PRN (17:15)
[2017-02-10] MEDS: LORazepam 1 MG TAB TUBE PRN (21:48)
[2017-02-10] MEDS: PRAVASTATIN SODIUM 20 MG TAB TUBE SCH (21:49)
[2017-02-11] MEDS: AMPICILLIN SODIUM 1 GM in NS 100 ML IV SCH ×2 (05:15→12:21)
[2017-02-11] MEDS: LEVOTHYROXINE 200 MCG TAB TUBE SCH (05:18)
[2017-02-11] MEDS: INSULIN LISPRO 100 UNIT/ML SC SCH ×3 (08:06→18:01)
[2017-02-11] MEDS: ENOXAPARIN 40 MG/0.4 ML SYR SC SCH (08:07)
[2017-02-11] MEDS: ACETAMINOPHEN 650 MG/20.3 ML UDCUP TUBE PRN ×2 (10:23→16:41)
[2017-02-11] MEDS: POTASSIUM CL 20 MEQ/15 ML UDCUP TUBE SCH (10:24)
[2017-02-11] MEDS: VALPROIC ACID 250 MG/5 ML UDCUP TUBE SCH ×2 (10:25→20:33)
[2017-02-11] MEDS: QUEtiapine FUMARATE 50 MG TAB TUBE SCH ×2 (10:30→20:33)
[2017-02-11] MEDS: QUEtiapine FUMARATE 100 MG TAB TUBE SCH ×2 (10:30→20:33)
[2017-02-11] MEDS: FUROSEMIDE 40 MG TAB TUBE SCH (10:30)
[2017-02-11] MEDS: ARIPiprazole 10 MG TAB TUBE SCH (10:30)
[2017-02-11] MEDS: FLUCONAZOLE 100 MG TAB PO SCH (10:31)
[2017-02-11] MEDS: PARoxetine HCL 10 MG/5 ML UDL TUBE SCH (10:32)
[2017-02-11] MEDS ORDERED: ACETAMINOPHEN 500 MG TAB TUBE PRN (11:00)
[2017-02-11] MEDS: LANSOPRAZOLE SUSP 30MG/10ML UDSYR (Adult) TUBE SCH (12:21)
--- NOTE | 2017-02-11 13:46 | HOSPPROG ---
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 * Bipolar Subjective: no complaints, anxious to get tube out Objective: Vital Signs Temp Pulse Resp BP Pulse Ox 36.9 C 106 H 16 126/66 H 93 02/11/17 07:27 02/11/17 11:30 02/11/17 07:27 02/11/17 07:27 02/11/17 11:30 Laboratory Results 02/06/17 04:48 02/09/17 05:02 02/10/17 02/11/17 02/12/17 05:59 05:59 05:59 Intake Total 240 1350 180 Output Total 025 621 1953 Balance -510 510 -107 - Physical Exam Constitutional: no apparent distress, appears nourished, not in pain Cardiovascular: regular rate and rhythym, no murmur, rub, or gallop Respiratory: no respiratory distress, no rales or rhonchi, clear to auscultation Gastrointestinal: normoactive bowel sounds, soft, non-tender abdomen, no palpable masses Skin: no rashes or abrasions, no fluctuance, no induration Neurologic: AAOx3, sensation intact bilaterally Psychiatric: interacting appropriately, not anxious, not encephalopathic, thought process linear ICD10 Worksheet Patient Problems: Problems Problem Status Onset Bronchitis Acute Dehydration Acute Pharyngitis Acute Tachycardia Acute Diabetes mellitus type 2 Active Obesity Active Osteoarthritis of knee Acute
[2017-02-11] MEDS: ONDANSETRON DISINTEGRATING 4 MG TAB PO PRN (16:42)
[2017-02-11] MEDS: PRAVASTATIN SODIUM 20 MG TAB TUBE SCH (20:33)
[2017-02-11] MEDS: LORazepam 1 MG TAB TUBE PRN (20:33)
[2017-02-12] MEDS: ACETAMINOPHEN 650 MG/20.3 ML UDCUP TUBE PRN ×2 (00:09→10:12)
[2017-02-12] MEDS: HYDROmorphONE/DILAUDID 1 MG/ML SYR IVP PRN (03:15)
[2017-02-12 05:11] LABS: ABSOLUTE NRBC COUNT 0.02 10^3/uL (0-0.01); ADD DIFF? YES; ADD MORPH? NO; ATYPICAL LYMPHOCYTE FLAG 10 (0-99); FRAGMENT RBC FLAG 0 (0-99); HEMATOCRIT 38.3 % (40.0-51.0); HEMOGLOBIN 12.6 g/dL (13.7-17.5); LIPEMIA HEMOLYSIS FLAG 80 (0-99); MEAN CELL HEMOGLOBIN 30.5 pg (27.9-34.1); MEAN CELL HEMOGLOBIN CONCENTR. 32.9 g/dL (32.4-36.7); MEAN CELL VOLUME 92.7 fL (81.5-99.8); MEAN PLATELET VOLUME 10.2 fL (8.7-11.7); NRBC-AUTO% 0.2 % (0.0-0.2); PLATELET CLUMPS FLAG 10 (0-99); PLATELET COUNT 215 10^3/uL (150-400); RED BLOOD CELL COUNT 4.13 10^6/uL (4.40-6.38); RED CELL DISTRIBUTION WIDTH 13.6 % (11.5-15.2)
[2017-02-12 05:16] LABS: ADD SCAN? NO; LEFT SHIFT FLG 110 (0-99)
[2017-02-12 05:24] LABS: ANION GAP 10 mEq/L (8-16); CALCIUM 9.2 mg/dL (8.5-10.4); CARBON DIOXIDE 26 mEq/l (22-31); CHLORIDE 100 mEq/L (97-110); GLOMERULAR FILTRATION RATE > 60; GLUCOSE 232 mg/dL (70-100); POTASSIUM 4.1 mEq/L (3.5-5.2); SODIUM 136 mEq/L (134-144)
[2017-02-12] MEDS: LEVOTHYROXINE 200 MCG TAB TUBE SCH (05:46)
[2017-02-12 06:01] LABS: PLATELET ESTIMATE ADEQUATE (ADEQ); POLYCHROMASIA 1+
[2017-02-12] MEDS ORDERED: FLUCONAZOLE 100 MG TAB TUBE SCH (09:00)
[2017-02-12] MEDS: INSULIN LISPRO 100 UNIT/ML SC SCH ×2 (10:10→13:08)
[2017-02-12] MEDS: PARoxetine HCL 10 MG/5 ML UDL TUBE SCH (10:12)
[2017-02-12] MEDS: LANSOPRAZOLE SUSP 30MG/10ML UDSYR (Adult) TUBE SCH (10:12)
[2017-02-12] MEDS: POTASSIUM CL 20 MEQ/15 ML UDCUP TUBE SCH (10:13)
[2017-02-12] MEDS: VALPROIC ACID 250 MG/5 ML UDCUP TUBE SCH (10:13)
[2017-02-12] MEDS: ARIPiprazole 10 MG TAB TUBE SCH (10:21)
[2017-02-12] MEDS: QUEtiapine FUMARATE 50 MG TAB TUBE SCH (10:22)
[2017-02-12] MEDS: QUEtiapine FUMARATE 100 MG TAB TUBE SCH (10:22)
[2017-02-12] MEDS: ENOXAPARIN 40 MG/0.4 ML SYR SC SCH (10:29)
[2017-02-12] MEDS: FUROSEMIDE 40 MG TAB TUBE SCH (13:06)
--- NOTE | 2017-02-12 14:44 | PDIAF ---
- Diagnosis Diagnosis: sepsis Code Status: Full Code - Medication Management Discharge Medications: Medications to Continue on Transfer ARIPiprazole [Abilify 10 mg (*)] 20 mg PO DAILY 12/20/14 [Last Taken 02/01/17] Divalproex [Depakote] 1,000 mg PO HS 12/20/14 [Last Taken 02/01/17] Divalproex [Depakote] 500 mg PO DAILY 12/20/14 [Last Taken 02/01/17] Furosemide [Lasix 40 MG (*)] 40 mg PO DAILY 12/20/14 [Last Taken 02/01/17] Lisinopril [Zestril 10 mg (*)] 10 mg PO DAILY 12/20/14 [Last Taken 02/01/17] PARoxetine HCL [Paxil 20mg (*)] 20 mg PO DAILY 12/20/14 [Last Taken 02/01/17] QUEtiapine FUMARATE [Seroquel 300mg (*)] 300 mg PO HS 12/20/14 [Last Taken 02/01] LORazepam [Ativan (*)] 0.5 - 1 mg PO DAILY PRN 02/02/17 [Last Taken Unknown] Levothyroxine [Synthroid 200 mcg (*)] 200 mcg PO DAILY06 02/02/17 [Last Taken ] Simvastatin 10 mg PO HS 02/02/17 [Last Taken 02/01/17] Fluconazole [Diflucan (*)] 200 mg TUBE DAILY #5 tab 02/12/17 [Last Taken Unknown ] Pantoprazole Sodium [Protonix 40mg (*)] 40 mg PO DAILY #30 tab 02/12/17 [Last Taken Unknown] Fdc Antibiotic Stop Date: 02/16/17 (4 more days diflucan) Discharge Medications: Refer to the Discharge Home Medication list for PRN reason. - Orders Services needed: Physical Therapy, Occupational Therapy, Speech Language Pathologist Diet Recommendation: no restrictions on diet Diet Texture: Dysphagia 3 - Advanced - Moist, Bite-Size, [place] Thick Liquids, Meds Crushed in Puree - Follow Up Care Current Providers and Referrals: Patient,NotPresent [Unknown] - As per Instructions
[2017-02-12 16:41] VITALS: BP 129/80; PULSE 88; RESP 12; TEMP 98.1; O2SAT 89
--- NOTE | 2017-02-12 18:04 | GDS ---
[f rep st] DISCHARGE SUMMARY DISCHARGE DIAGNOSES: 1. Pharyngitis with sepsis. 2. Esophagitis. 3. Dysphagia. 4. Oral thrush. 5. [id number]-[id number] diastolic congestive heart failure. 6. Diabetes, type 2. 7. Chronic venous stasis change. 8. Morbid obesity, BMI 41, with obstructive sleep apnea. 9. 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 10. Bipolar. HISTORY: The patient is a 71-year-old male who presented with sepsis. Clinically, he had pharyngitis. His CAT scan also showed diffuse esophagitis. He underwent EGD that was relatively unremarkable, except for some mild esophagitis, nonspecific, with negative biopsy. He is now on a proton pump inhibitor. His strep was negative. However, clinical suspicion remained high, so he did receive 10 days of antibiotics, which are now complete. There was also evidence of oral candidiasis for which he was treated with Diflucan. Conceivably, he could have an element of esophageal candidiasis, although this was not seen on EGD. He will complete a course of Diflucan. His swallow was found to be extremely weak, and he required Dobbhoff tube feeds and prolonged n.p.o. Speech Therapy saw him daily, and he had a repeat video swallow study today which looks much improved, and he is now cleared for oral intake and Dobbhoff will be removed. DISCHARGE MEDICATIONS: Please see computerized record for full detailed list. NEW MEDICATIONS: 1. Diflucan 200 mg p.o. daily for 4 more days. 2. Protonix 40 mg p.o. daily. ADDITIONAL DISCHARGE INSTRUCTIONS: 1. Discharge to [facility] for further rehabilitation. 2. Dysphagia 3 diet with nectar-thick liquids. Greater than 30 minutes' time was spent arranging this discharge. Patient was seen and examined by me on the day of discharge. /[id number]/MODL MTDD
[2017-02-12] MEDS ORDERED: ENOXAPARIN 40 MG/0.4 ML SYR SC SCH (21:00)
== END 2017-02-12 18:20 | DRG 871 ==
LOC: EDUNIT# → INTOOBSV 09:46 → F3E 12:21 → OBSVTOIN 02-03 14:55
PROVIDERS: ADMIT Internal Medicine; ATTEND Internal Medicine
PROC: 0DB18ZX Excision of Upper Esophagus, Via Natural or Artificial Opening Endoscopic, Diagnostic (ICD-10-PCS; principal; 2017-02-03)
PROC: 0DB38ZX Excision of Lower Esophagus, Via Natural or Artificial Opening Endoscopic, Diagnostic (ICD-10-PCS; principal; 2017-02-03)
PROC: 0DH87UZ Insertion of Feeding Device into Small Intestine, Via Natural or Artificial Opening (ICD-10-PCS; 2017-02-05)
DX: A41.9 Sepsis, unspecified organism (principal); J02.9 Acute pharyngitis, unspecified; I26.99 Other pulmonary embolism without acute cor pulmonale; K20.9 Esophagitis, unspecified; R13.10 Dysphagia, unspecified; B37.0 Candidal stomatitis; E11.9 Type 2 diabetes mellitus without complications; G20 Parkinson's disease; I11.0 Hypertensive heart disease with heart failure; I50.31 Acute diastolic (congestive) heart failure; J44.9 Chronic obstructive pulmonary disease, unspecified; I87.2 Venous insufficiency (chronic) (peripheral); G47.33 Obstructive sleep apnea (adult) (pediatric); E03.9 Hypothyroidism, unspecified; F31.9 Bipolar disorder, unspecified; E66.01 Morbid (severe) obesity due to excess calories; Z68.41 Body mass index [BMI] 40.0-44.9, adult
CPT/HCPCS: 92526-GN; 92610-GN; 92611-GN; 96365; 97110-GP; 97163-GP; 97166-GO; 97530-GO; 97530-GP; 97535-GO; G0378; G8978-GP-CN; G8979-GP-CM; G8987-GO-CM; G8988-GO-CL; G8996-GN-CJ; G8996-GN-CM; G8997-GN-CI; G8997-GN-CK; G8998-GN-CJ; J0290; J0696; J1170; J1335; J1650; J1815; J1940; J2405; J2704; Q9967

== ENCOUNTER 2018-08-17 08:50 | Emergency (ER) | payer OTHER ==
--- NOTE | 2018-08-17 09:17 | EDPHY ---
HPI/HX/ROS/PE/MDM Narrative: CHIEF COMPLAINT: Urinary symptoms HPI: The patient is a 73 y/o male with a history of diabetes type II, Parkinson' s, and UTIs arriving with his caregiver complaining of burning urination and urinary frequency for the last two days. He has an associated lower back ache. He denies fever, nausea, vomiting, diarrhea, recent antibiotics, cough, dyspnea , or other symptoms. His caregiver reports he sits in a chair continuously and they put chucks pads below him due to the increased urinary frequency. REVIEW OF SYSTEMS: A comprehensive 10 system review of systems is otherwise negative aside from elements mentioned in the history of present illness. PMH: Diabetes type II, Parkinson's disease, prostate cancer, hypertension, obstructive sleep apnea, hypothyroidism, UTIs, CHF, chronic venous stasis, morbid obesity, bipolar disorder. SOCIAL HISTORY: Nonsmoker. Chair-bound. Prior medical records reviewed including admission 02/03/17 for sore throat, sepsis. PHYSICAL EXAM: General:Patient is alert, in no acute distress. Morbidly obese. Afebrile. ENT:Eyes are normal to inspection. ENT inspection normal. Neck: Normal inspection. Full range of motion. Respiratory:No respiratory distress. Breath sounds normal bilaterally. Cardiovascular: Tachycardic regular rate and rhythm. Strong peripheral pulses. Normal cap refill. Abdomen:The abdomen is nontender to palpation. There are no peritoneal signs. Back: Normal to inspection. No tenderness to palpation. Skin: Normal color. No rash. Warm and dry. Extremities: Venous stasis changes. Neuro: Oriented x3. Movement in all extremities. Tremor. ED Course: This is a 73 y/o male with diabetes and Parkinson's disease who is essentially chair-bound who presents with a 2-day history of dysuria and polyuria. Symptoms are consistent with prior UTIs. Abdomen is benign. Plan for IV, labs, UA. 1000: UA positive for infection. Lactate moderately elevated. I discussed these findings with the patient and his . We will treat him with IV Rocephin. Given his moderately elevated lactic acid level as well as prior admit where he presented with pharyngitis and then developed sepsis, I offered the patient admission to the hospital for close observation, repeat lactic acid to ensure that this normalizes and continued IV antibiotics. The patient declines this however and would like to go home on oral antibiotics. He understands that he is at risk of sepsis and/or readmission. - Data Points Laboratory Results: Laboratory Results 08/17/18 09:20 08/17/18 08/17/18 08/17/18 09:45 09:20 09:20 WBC 9.06 10^3/uL 10^3/uL (3.80-9.50) RBC 4.99 10^6/uL 10^6/uL (4.40-6.38) Hgb 14.7 g/dL g/dL (13.7-17.5) Hct 44.9 % % (40.0-51.0) MCV 90.0 fL fL (81.5-99.8) MCH 29.5 pg pg (27.9-34.1) MCHC 32.7 g/dL g/dL (32.4-36.7) RDW 15.0 % % (11.5-15.2) Plt Count 233 10^3/uL 10^3/uL (150-400) MPV 9.9 fL fL (8.7-11.7) Neut % (Auto) 64.2 % % (39.3-74.2) Lymph % (Auto) 17.8 % % (15.0-45.0) Marshall % (Auto) 10.3 % % (4.5-13.0) Eos % (Auto) 4.5 % % (0.6-7.6) Baso % (Auto) 0.9 % % (0.3-1.7) Nucleat RBC Rel Count 0.0 % % (0.0-0.2) Absolute Neuts (auto) 5.82 10^3/uL 10^3/uL (1.70-6.50) Absolute Lymphs (auto) 1.61 10^3/uL 10^3/uL (1.00-3.00) Absolute Monos (auto) 0.93 10^3/uL H 10^3/uL (0.30-0.80) Absolute Eos (auto) 0.41 10^3/uL H 10^3/uL (0.03-0.40) Absolute Basos (auto) 0.08 10^3/uL 10^3/uL (0.02-0.10) Absolute Nucleated RBC 0.00 10^3/uL 10^3/uL (0-0.01) Immature Gran % 2.3 % H % (0.0-1.1) Immature Gran # 0.21 10^3/uL H 10^3/uL (0.00-0.10) VBG Lactic Acid Sodium Pending Potassium Pending Chloride Pending Carbon Dioxide Pending Anion Gap Pending BUN Pending Creatinine Pending Estimated GFR Pending Glucose Pending Calcium Pending Urine Color YELLOW Urine Appearance MODERATELY TURBID Urine pH 5.0 (5.0-7.5) Ur Specific Carlyle 1.012 (1.002-1.030) Urine Protein 1+ H (NEGATIVE) Urine Ketones NEGATIVE (NEGATIVE) Urine Blood 3+ H (NEGATIVE) Urine Nitrate NEGATIVE (NEGATIVE) Urine Bilirubin NEGATIVE (NEGATIVE) Urine Urobilinogen NEGATIVE EU EU (0.2-1.0) Ur Leukocyte Esterase 3+ H (NEGATIVE) Urine RBC 10-15 /hpf H /hpf (0-3) Urine WBC 50-182 /hpf H /hpf (0-3) Ur Epithelial Cells TRACE /lpf /lpf (NONE-1+) Urine Bacteria TRACE /hpf H /hpf (NONE SEEN) Hyaline Casts 1-5 /lpf /lpf (0-1) Urine Mucus TRACE /lpf /lpf (NONE-1+) Urine Glucose 3+ H (NEGATIVE) 08/17/18 09:20 WBC RBC Hgb Hct MCV MCH MCHC RDW Plt Count MPV Neut % (Auto) Lymph % (Auto) Marshall % (Auto) Eos % (Auto) Baso % (Auto) Nucleat RBC Rel Count Absolute Neuts (auto) Absolute Lymphs (auto) Absolute Monos (auto) Absolute Eos (auto) Absolute Basos (auto) Absolute Nucleated RBC Immature Gran % Immature Gran # VBG Lactic Acid 3.2 mmol/L H mmol/L (0.7-2.1) Sodium Potassium Chloride Carbon Dioxide Anion Gap BUN Creatinine Estimated GFR Glucose Calcium Urine Color Urine Appearance Urine pH Ur Specific Carlyle Urine Protein Urine Ketones Urine Blood Urine Nitrate Urine Bilirubin Urine Urobilinogen Ur Leukocyte Esterase Urine RBC Urine WBC Ur Epithelial Cells Urine Bacteria Hyaline Casts Urine Mucus Urine Glucose Medications Given: Discontinued Medications Sodium Chloride (Ns) 500 mls @ 0 mls/hr IV EDNOW ONE; Wide Open PRN Reason: Protocol Stop: 08/17/18 09:38 Last Admin: 08/17/18 09:46 Dose: 500 mls General Time Seen by Provider: 08/17/18 09:01 Initial Vital Signs: Initial Vital Signs Temperature (C) 36.6 C 08/17/18 08:54 Heart Rate 108 H 08/17/18 08:54 Respiratory Rate 18 08/17/18 08:54 Blood Pressure 116/72 08/17/18 08:54 O2 Sat (%) 96 08/17/18 08:54 O2 Delivery Mode Room Air Allergies/Adverse Reactions: metformin Allergy (Intermediate, Verified 08/17/18 08:53) severe diarrhea trifluoperazine HCl [From Stelazine] Allergy (Verified 08/17/18 08:53) Home Medications: Medication Instructions Recorded ARIPiprazole [Abilify 10 mg (*)] 20 mg PO DAILY 12/20/14 Divalproex [Depakote] 1,000 mg PO HS 12/20/14 Divalproex [Depakote] 500 mg PO DAILY 12/20/14 Furosemide [Lasix 40 MG (*)] 40 mg PO DAILY 12/20/14 Lisinopril [Zestril 10 mg (*)] 10 mg PO DAILY 12/20/14 PARoxetine HCL [Paxil 20mg (*)] 20 mg PO DAILY 12/20/14 QUEtiapine FUMARATE [Seroquel 300 mg PO HS 12/20/14 300mg (*)] LORazepam [Ativan (*)] 0.5 - 1 mg PO DAILY PRN 02/02/17 Levothyroxine [Synthroid 200 mcg 200 mcg PO DAILY06 02/02/17 (*)] Simvastatin 10 mg PO HS 02/02/17 Fluconazole [Diflucan (*)] 200 mg TUBE DAILY #5 tab 02/12/17 Pantoprazole Sodium [Protonix 40mg 40 mg PO DAILY #30 tab 02/12/17 (*)] Departure - Departure Disposition: Home, Routine, Self-Care Clinical Impression: UTI (urinary tract infection) Qualifiers: Urinary tract infection type: acute cystitis Hematuria presence: without hematuria Qualified Code(s): N30.00 - Acute cystitis without hematuria Condition: Good Instructions: Urinary Tract Infection in Men (ED) Additional Instructions: 1. Take Keflex as prescribed. Be sure to complete the entire prescription even if you no longer have symptoms. 2. Use Tylenol and ibuprofen as directed on the packaging if needed for pain over the next few days. 3. Follow up with your primary care provider for unimproved symptoms over the next 2-3 days. 4. Return to the ED for severe pain, fever, uncontrollable vomiting, or other worsening of condition. Referrals: Dede Taylor MD [Medical Doctor] - As per Instructions Report Scribed for: Tim Angeles Report Scribed by: Cheryl Martinez Date of Report: 08/17/18 Time of Report: 09:17 Physician Review and Approval Statement: Portions of this note were transcribed by an ED scribe. I personally performed the history, physical exam, and medical decision making; and confirm the accuracy of the information in the transcribed note.
[2018-08-17 09:33] LABS: PLATELET COUNT 233 10^3/uL (150-400)
[2018-08-17] MEDS ORDERED: NS 500 ML IV ONE (09:37)
[2018-08-17 10:51] VITALS: BP 126/78
== END 2018-08-17 10:51 | disposition home or self-care (01) ==
DX: N30.00 Acute cystitis without hematuria (principal); E11.9 Type 2 diabetes mellitus without complications; G20 Parkinson's disease; I11.0 Hypertensive heart disease with heart failure; I50.9 Heart failure, unspecified; E03.9 Hypothyroidism, unspecified; E66.01 Morbid (severe) obesity due to excess calories; G47.33 Obstructive sleep apnea (adult) (pediatric)
CPT/HCPCS: 96365; 99284; J0696

== ENCOUNTER 2018-10-07 06:57 | Emergency (ER) | payer OTHER ==
--- NOTE | 2018-10-07 07:20 | EDPHY ---
H & P Stated Complaint: dizziness Time Seen by Provider: 10/07/18 07:11 - Personal History Tetanus Vaccine Date: 2010 - Medical/Surgical History Hx Asthma: No Hx Chronic Respiratory Disease: No Hx Diabetes: Yes Hx Cardiac Disease: Yes Hx Renal Disease: No Hx Cirrhosis: No Hx Alcoholism: No Hx HIV/AIDS: No Hx Splenectomy or Spleen Trauma: No Other PMH: DM, Parkinson's, edema, bipolar, prostate CA, HTN, hypothyroid - Social History Smoking Status: Never smoked Constitutional: Initial Vital Signs Temperature (C) 36.7 C 10/07/18 07:05 Heart Rate 98 10/07/18 07:05 Respiratory Rate 16 10/07/18 07:05 Blood Pressure 113/74 10/07/18 07:05 O2 Sat (%) 91 L 10/07/18 07:05 O2 Delivery Mode Room Air Allergies/Adverse Reactions: metformin Allergy (Intermediate, Verified 08/17/18 08:53) severe diarrhea trifluoperazine HCl [From Stelazine] Allergy (Verified 08/17/18 08:53) Home Medications: Medication Instructions Recorded ARIPiprazole [Abilify 10 mg (*)] 20 mg PO DAILY 12/20/14 Divalproex [Depakote] 1,000 mg PO HS 12/20/14 Divalproex [Depakote] 500 mg PO DAILY 12/20/14 Furosemide [Lasix 40 MG (*)] 40 mg PO DAILY 12/20/14 Lisinopril [Zestril 10 mg (*)] 10 mg PO DAILY 12/20/14 PARoxetine HCL [Paxil 20mg (*)] 20 mg PO DAILY 12/20/14 QUEtiapine FUMARATE [Seroquel 300 mg PO HS 12/20/14 300mg (*)] LORazepam [Ativan (*)] 0.5 - 1 mg PO DAILY PRN 02/02/17 Levothyroxine [Synthroid 200 mcg 200 mcg PO DAILY06 02/02/17 (*)] Simvastatin 10 mg PO HS 02/02/17 Fluconazole [Diflucan (*)] 200 mg TUBE DAILY #5 tab 02/12/17 Pantoprazole Sodium [Protonix 40mg 40 mg PO DAILY #30 tab 02/12/17 (*)] Cephalexin [Keflex] 500 mg PO Q6H #28 cap 08/17/18 Medical Decision Making - Diagnostics Imaging Results: Imaging Impressions Pelvis CT 10/07/18 07:20 Impression: 1. No acute fracture or dislocation. 2. Haziness around the rectum and prostate. Correlate with any signs of prostatitis or proctitis. 3. Degenerative changes of the lower lumbar spine. Findings and recommendations discussed with Justin Garcia MD at 818 hour, . Imaging: Discussed imaging studies w/ call or contact centre operator Radiologist, I viewed and interpreted images myself ED Course/Re-evaluation: CHIEF COMPLAINT: Fall, lightheaded HISTORY OF PRESENT ILLNESS: The patient is a 73 y/o male with a history fo Parkinson's and bipolar disorder arriving via EMS after he became lightheaded and fell this morning. The patient was moving from his recliner to walk across his room when he had "a wave of dizziness" and fell. He was able sort of catch his fall and denies hitting his head or loss of consciousness. His and DATA ENTRY TECHNICIAN became concerned that the patient fell in conjunction with his lightheadedness. Yesterday the patient also developed right groin pain. He denies difficulty walking or standing due to the pain. No fever, headache, chest pain, heart palpitations, shortness of breath, cough, abdominal pain, urinary or bowel complaints, numbness, paresthesias. REVIEW OF SYSTEMS: A 10 point review of systems was performed and is negative with the exception of the elements mentioned in the history of present illness. PHYSICAL EXAM: HR, BP, O2 Sat, RR. Temp noted General Appearance: Alert, well hydrated, appropriate, and non-toxic appearing. Head: Atraumatic without scalp tenderness or obvious injury Eyes: Pupils equal, round, reactive to light and accommodation, EOMI, no trauma , no injection. Ears: Clear bilaterally, no perforation, normal landmarks Nose: Atraumatic, no rhinorrhea, clear. Throat: There is no erythema or exudates, no lesions, normal tonsils, mucus membranes moist. Neck: Supple, 2+ carotid upstroke, nontender, no lymphadenopathy. Respiratory: No retractions, no distress, no wheezes, and no accessory muscle use. Lungs are clear to auscultation bilaterally. Cardiovascular: Regular rate and rhythm, no murmurs, rubs, or gallops. Bilateral carotid, radial, dorsalis pedis, and posterior tibial pulses intact. Good capillary refill all extremities. Gastrointestinal: Abdomen is soft, nontender, non-distended, no masses, no rebound, no guarding, no peritoneal signs. Musculoskeletal: Right groin pain. Normal active ROM of all extremities, atraumatic. Neurological: Parkinsonian tremor. Alert, appropriate, and interactive. The patient has normal DTRs and non-focal cranial nerves, motor, sensory, and cerebellar exam. Skin: No rashes, good turgor, no nodules on palpation. Past medical history: Parkinson's, anxiety, bipolar, hypothyroid, hypertension Past surgical history: Denies Family history: Denies Social history: at bedside, lives in [place], retired DIAGNOSTICS/PROCEDURES/CRITICAL CARE TIME: Pelvic CT: No acute findings. DIFFERENTIAL DIAGNOSIS: The differential diagnosis for the patient's dizziness included but was not limited to peripheral and central causes of vertigo, orthostatic causes including dehydration, cardiogenic and neurogenic causes, and blood loss. MEDICAL DECISION MAKING: The patient is a 73 y/o male with a history fo Parkinson's and bipolar disorder arriving via EMS after he became lightheaded and fell this morning. The patient and his are concerned about why the patient might be lightheaded. On exam the patient has an Parkinsonian tremor. He also has very mild right groin pain, but can bear weight; pelvic CT ordered. Patient's dizziness is most likely due to postural hypotension due to his Parkinson's disease. 0817: I spoke with Dr. Rivera, radiologist, regarding patient's pelvic CT. His labs are also unremarkable. Patient's symptoms are most likely due to transient autonomic nervous system dysfunction. 0824: Reassessed patient and discussed imaging and laboratory findings. Return precautions provided; patient is comfortable with this plan. - Data Points Laboratory Results: Laboratory Results 10/07/18 07:05 10/07/18 07:05 10/07/18 10/07/18 07:05 07:05 WBC 9.55 10^3/uL H 10^3/uL (3.80-9.50) RBC 5.34 10^6/uL 10^6/uL (4.40-6.38) Hgb 16.1 g/dL g/dL (13.7-17.5) Hct 50.5 % % (40.0-51.0) MCV 94.6 fL fL (81.5-99.8) MCH 30.1 pg pg (27.9-34.1) MCHC 31.9 g/dL L g/dL (32.4-36.7) RDW 15.0 % % (11.5-15.2) Plt Count 214 10^3/uL 10^3/uL (150-400) MPV 10.7 fL fL (8.7-11.7) Neut % (Auto) Pending Lymph % (Auto) Pending Todd % (Auto) Pending Eos % (Auto) Pending Baso % (Auto) Pending Nucleat RBC Rel Count Pending Absolute Neuts (auto) Pending Absolute Lymphs (auto) Pending Absolute Monos (auto) Pending Absolute Eos (auto) Pending Absolute Basos (auto) Pending Absolute Nucleated RBC Pending Immature Gran % Pending Immature Gran # Pending Platelet Estimate Pending Sodium 140 mEq/L mEq/L (135-145) Potassium 4.6 mEq/L mEq/L (3.5-5.2) Chloride 103 mEq/L mEq/L (97-110) Carbon Dioxide 26 mEq/l mEq/l (22-31) Anion Gap 11 mEq/L mEq/L (6-14) BUN 20 mg/dL mg/dL (7-23) Creatinine 1.3 mg/dL mg/dL (0.7-1.3) Estimated GFR 54 Glucose 161 mg/dL H mg/dL (70-100) Calcium 9.3 mg/dL mg/dL (8.5-10.4) Departure - Departure Disposition: Home, Routine, Self-Care Clinical Impression: Postural dizziness, Transient autonomic symptoms Condition: Good Instructions: Dizziness (ED) Additional Instructions: 1. Follow-up with your primary doctor within 72 hours. 2. Return to the Emergency Department for fever, chest pain, shortness of breath , increasing pain or other worsening of condition. Referrals: [facility],. [Clinic] - As per Instructions Report Scribed for: Justin Garcia Report Scribed by: Ginny Garcia Date of Report: 10/07/18 Time of Report: 07:12
[2018-10-07 08:10] LABS: PLATELET COUNT 214 10^3/uL (150-400)
[2018-10-07 10:03] VITALS: BP 122/89
== END 2018-10-07 10:02 | disposition home or self-care (01) ==
LOC: EDUNIT#
DX: R42 Dizziness and giddiness (principal); R10.31 Right lower quadrant pain

== ENCOUNTER 2018-10-08 15:29 | Inpatient (IN) | payer OTHER ==
--- NOTE | 2018-10-08 16:04 | EDPHY ---
H & P Stated Complaint: "legs don't work" Time Seen by Provider: 10/08/18 15:35 HPI/ROS: CHIEF COMPLAINT: Weakness, falling, right ankle pain HISTORY OF PRESENT ILLNESS: Patient has a history of Parkinson's disease. Presents the emergency department with complaints of right-sided pains most notably to the right ankle and inability to transfer. The patient does have home health. Patient has required a 2 person assist which is atypical for him over the past day. The patient was seen here in the emergency department yesterday and had a CT scan of the pelvis which was negative for traumatic findings. The patient was noted to have questionable prostatitis on his CT scan. The patient denies any complaints of dysuria. The patient's reports that she believes he will require admission to the hospital secondary to global weakness and difficulty ambulating. Patient denies any headache. He denies any acute numbness or weakness. He denies fever, cough or congestion. REVIEW OF SYSTEMS: A comprehensive 10 point review of systems is otherwise negative aside from elements mentioned in the history of present illness. Source: Patient, Family - Personal History Current Tetanus/Diphtheria Vaccine: Yes Current Tetanus Diphtheria and Acellular Pertussis (TDAP): Yes Tetanus Vaccine Date: 2010 - Medical/Surgical History Hx Asthma: No Hx Chronic Respiratory Disease: No Hx Diabetes: Yes Hx Cardiac Disease: Yes Hx Renal Disease: No Hx Cirrhosis: No Hx Alcoholism: No Hx HIV/AIDS: No Hx Splenectomy or Spleen Trauma: No Other PMH: DM, Parkinson's, edema, bipolar, prostate CA, HTN, hypothyroid - Social History Smoking Status: Never smoked - Physical Exam Exam: General Appearance: Elderly male, appears deconditioned Eyes: Pupils equal and round no pallor or injection ENT, Mouth: Mucous membranes moist Respiratory: There are no retractions, lungs are clear to auscultation Cardiovascular: Regular rate and rhythm Gastrointestinal: Abdomen is soft and nontender, no masses, bowel sounds normal Neurological: 5/5 strength noted all 4 extremities Skin: Stasis dermatitis bilateral lower extremities Musculoskeletal: Neck is supple nontender Extremities: Tenderness to palpation over the right medial lateral malleolus Psychiatric: Patient is oriented X 3, there is no agitation Constitutional: Initial Vital Signs Temperature (C) 36.9 C 10/08/18 15:42 Heart Rate 105 H 10/08/18 15:42 Respiratory Rate 20 10/08/18 15:42 Blood Pressure 133/73 H 10/08/18 15:42 O2 Sat (%) 88 L 10/08/18 15:42 O2 Delivery Mode Room Air Allergies/Adverse Reactions: metformin Allergy (Intermediate, Verified 08/17/18 08:53) severe diarrhea trifluoperazine HCl [From Stelazine] Allergy (Verified 08/17/18 08:53) Home Medications: Medication Instructions Recorded ARIPiprazole [Abilify 10 mg (*)] 20 mg PO DAILY 12/20/14 Divalproex [Depakote] 1,000 mg PO HS 12/20/14 Divalproex [Depakote] 500 mg PO DAILY 12/20/14 Furosemide [Lasix 40 MG (*)] 40 mg PO DAILY 12/20/14 Lisinopril [Zestril 10 mg (*)] 10 mg PO DAILY 12/20/14 PARoxetine HCL [Paxil 20mg (*)] 20 mg PO DAILY 12/20/14 QUEtiapine FUMARATE [Seroquel 300 mg PO HS 12/20/14 300mg (*)] LORazepam [Ativan (*)] 0.5 - 1 mg PO DAILY PRN 02/02/17 Levothyroxine [Synthroid 200 mcg 200 mcg PO DAILY06 02/02/17 (*)] Simvastatin 10 mg PO HS 02/02/17 Fluconazole [Diflucan (*)] 200 mg TUBE DAILY #5 tab 02/12/17 Pantoprazole Sodium [Protonix 40mg 40 mg PO DAILY #30 tab 02/12/17 (*)] Cephalexin [Keflex] 500 mg PO Q6H #28 cap 08/17/18 Nystatin Powder [Mycostatin Powder] 15 gm TP TID #120 powder 10/07/18 Medical Decision Making ED Course/Re-evaluation: The patient has a history of Parkinson's disease and recently fell at home. He presents to the ED today after he has developed a new right ankle pain. Patient was taken for a x-ray which demonstrates a nondisplaced distal fibular fracture. The patient unfortunately is now on able to transfer safely and will require admission to the hospital as he cannot be at home. I reviewed the results of the patient's workup from yesterday including his CT scan and laboratory testing. Given the findings on his pelvic CT yesterday urinalysis has been ordered. Consulted orthopedic PA for Dr. Hyde. They will see the patient in consultation tomorrow. Patient placed in a Puentes boot this evening. Consultation made with Dr. Espinosa from hospitalist service who will admit the patient primarily. Differential Diagnosis: Differential diagnosis considered includes ankle fracture, ankle sprain, ankle dislocation, neurovascular injury, urinary tract infection - Data Points Laboratory Results: Laboratory Results 10/08/18 15:40 10/08/18 15:40 10/08/18 10/08/18 15:40 15:40 WBC 9.53 10^3/uL H 10^3/uL (3.80-9.50) RBC 5.52 10^6/uL 10^6/uL (4.40-6.38) Hgb 16.4 g/dL g/dL (13.7-17.5) Hct 50.1 % % (40.0-51.0) MCV 90.8 fL fL (81.5-99.8) MCH 29.7 pg pg (27.9-34.1) MCHC 32.7 g/dL g/dL (32.4-36.7) RDW 15.0 % % (11.5-15.2) Plt Count 192 10^3/uL 10^3/uL (150-400) MPV 10.2 fL fL (8.7-11.7) Neut % (Auto) Not Reported Lymph % (Auto) Not Reported Creek % (Auto) Not Reported Eos % (Auto) Not Reported Baso % (Auto) Not Reported Nucleat RBC Rel Count Not Reported Absolute Neuts (auto) Not Reported Absolute Lymphs (auto) Not Reported Absolute Monos (auto) Not Reported Absolute Eos (auto) Not Reported Absolute Basos (auto) Not Reported Absolute Nucleated RBC Not Reported Immature Gran % Not Reported Seg Neutrophils % 68.7 % % Band Neutrophils % 5.1 % % Lymphocytes % 14.1 % % Monocytes % 11.1 % % Eosinophils % 0.0 % % Basophils % 1.0 % % Metamyelocytes % 0.0 % % Myelocytes % 0.0 % % Promyelocytes % 0.0 % % Blast Cells % 0.0 % % Immature Gran # Not Reported Absolute Seg Neuts 6.55 10^3/uL H 10^3/uL (1.70-6.50) Absolute Band Neuts 0.49 10^3/uL 10^3/uL (0.00-0.70) Absolute Lymphocytes 1.34 10^3/uL 10^3/uL (1.00-3.00) Absolute Monocytes 1.06 10^3/uL H 10^3/uL (0.30-0.80) Absolute Eosinophils 0.00 10^3/uL L 10^3/uL (0.03-0.40) Absolute Basophils 0.10 10^3/uL 10^3/uL (0.02-0.10) Absolute Metamyelocyte 0.00 10^3/mL 10^3/mL (0.00-0.00) Absolute Myelocytes 0.00 10^3/mL 10^3/mL (0.00-0.00) Absolute Promyelocytes 0.00 10^3/uL 10^3/uL (0.00-0.00) Absolute Plasma Cells 0.00 10^3/uL 10^3/uL (0.00-0.00) Nucleated RBCs 0 /100 WBC /100 WBC (0-0) RBC/WBC/PLT Morphology NORMAL (NORMAL) Absolute Blast Cells 0.00 10^3/uL 10^3/uL (0.00-0.00) Plasma Cells % 0.0 % % Platelet Estimate ADEQUATE (ADEQ) Sodium 137 mEq/L mEq/L (135-145) Potassium 4.1 mEq/L mEq/L (3.5-5.2) Chloride 103 mEq/L mEq/L (97-110) Carbon Dioxide 25 mEq/l mEq/l (22-31) Anion Gap 9 mEq/L mEq/L (6-14) BUN 18 mg/dL mg/dL (7-23) Creatinine 1.1 mg/dL mg/dL (0.7-1.3) Estimated GFR > 60 Glucose 149 mg/dL H mg/dL (70-100) Calcium 8.9 mg/dL mg/dL (8.5-10.4) Departure - Departure Disposition: [facility] Inpatient Acute Clinical Impression: Parkinsons disease, Diabetes mellitus type 2 Fracture of distal fibula Qualifiers: Encounter type: initial encounter Fracture type: closed Fracture morphology: other fracture Laterality: right Qualified Code(s): S82.831A - Other fracture of upper and lower end of right fibula, initial encounter for closed fracture Condition: Fair
[2018-10-08 16:31] LABS: PLATELET COUNT 192 10^3/uL (150-400)
[2018-10-08] MEDS ORDERED: ONDANSETRON 4 MG/2 ML VIAL IVP PRN (16:53)
[2018-10-08] MEDS ORDERED: ONDANSETRON DISINTEGRATING 4 MG TAB PO PRN (16:53)
[2018-10-08] MEDS ORDERED: OXYCODONE/APAP 5/325 TAB PO PRN (16:53)
[2018-10-08] MEDS ORDERED: HYDROCODONE/APAP 5/325 TAB PO PRN (16:53)
--- NOTE | 2018-10-08 17:32 | PDGENHP ---
History and Physical - Chief Complaint R ankle pain - History of Present Illness Sergio Roque is a 73 yo M with a PMHx of Parkinson's Disease, T2DM, Bipolar d/o, Prostate cancer, HTN, hypothyroidism, Diastolic CHF who presents to [facility] for R ankle pain, inability to bear weight and transfer. Patient's is at bedside who has helped with hx taking. They report that patient had a fall yesterday while working with PT at home. He was pivoting and felt lightheaded and fell on his R side. He denies hitting his head. He was seen in [facility] ED for this yesterday at which time patient was complaining of R groin pain. CT Pelvis was performed which was negative for acute pelvic fracture. Patient was then discharged from ED to home. He reports that since this morning he has had significant R ankle pain. Pain is described as sharp, non-radiating, worse with movement and weight bearing and improved with rest and not moving his RLE. He was also unable to ambulate and transfer as normal due to inability to bear weight on his right leg. He denies any chest pain, SOB, abdominal pain, n/ v, d/c. He does report some decreased urination today with decreased PO intake but denies dysuria. History Information - Allergies/Home Medication List Allergies/Adverse Reactions: metformin Allergy (Intermediate, Verified 08/17/18 08:53) severe diarrhea trifluoperazine HCl [From Stelazine] Allergy (Verified 08/17/18 08:53) Home Medications: ARIPiprazole [Abilify 10 mg (*)] 20 mg PO DAILY 12/20/14 [Last Taken 02/01/17] Divalproex [Depakote] 1,000 mg PO HS 12/20/14 [Last Taken 02/01/17] Divalproex [Depakote] 500 mg PO DAILY 12/20/14 [Last Taken 02/01/17] Furosemide [Lasix 40 MG (*)] 40 mg PO DAILY 12/20/14 [Last Taken 02/01/17] Lisinopril [Zestril 10 mg (*)] 10 mg PO DAILY 12/20/14 [Last Taken 02/01/17] PARoxetine HCL [Paxil 20mg (*)] 20 mg PO DAILY 12/20/14 [Last Taken 02/01/17] QUEtiapine FUMARATE [Seroquel 300mg (*)] 300 mg PO HS 12/20/14 [Last Taken 02/01] LORazepam [Ativan (*)] 0.5 - 1 mg PO DAILY PRN 02/02/17 [Last Taken Unknown] Levothyroxine [Synthroid 200 mcg (*)] 200 mcg PO DAILY06 02/02/17 [Last Taken ] Simvastatin 10 mg PO HS 02/02/17 [Last Taken 02/01/17] I have personally reviewed and updated: family history, medical history, social history, surgical history - Past Medical History cancer, CHF, diabetes type 2, hypertension Additional medical history: Parkinson's, Bilpolar d/o - Surgical History Reports: cholecystectomy - Family History Positive for: non-pertinent - Social History Smoking Status: Never smoked Review of Systems Review of Systems: ROS: 10pt was reviewed & negative except for what was stated in HPI & below Physical Exam Physical Exam: Temp Pulse Resp BP Pulse Ox 36.9 C 105 H 20 133/73 H 88 L 10/08/18 15:42 10/08/18 15:42 10/08/18 15:42 10/08/18 15:42 10/08/18 15:42 Constitutional: no apparent distress Ears, Nose, Mouth, Throat: moist mucous membranes Cardiovascular: regular rate and rhythym Respiratory: no respiratory distress, clear to auscultation Gastrointestinal: soft, non-tender abdomen Genitourinary: no bladder tenderness, No nguyen in urethra Skin: normal color Musculoskeletal: pain with ROM, other (UE tremors ) Neurologic: AAOx3 Psychiatric: interacting appropriately Lab Data & Imaging Review 10/08/18 15:40 10/08/18 15:40 WBC 9.53 10^3/uL (3.80-9.50) H 10/08/18 15:40 RBC 5.52 10^6/uL (4.40-6.38) 10/08/18 15:40 Hgb 16.4 g/dL (13.7-17.5) 10/08/18 15:40 Hct 50.1 % (40.0-51.0) 10/08/18 15:40 MCV 90.8 fL (81.5-99.8) 10/08/18 15:40 MCH 29.7 pg (27.9-34.1) 10/08/18 15:40 MCHC 32.7 g/dL (32.4-36.7) 10/08/18 15:40 RDW 15.0 % (11.5-15.2) 10/08/18 15:40 Plt Count 192 10^3/uL (150-400) 10/08/18 15:40 MPV 10.2 fL (8.7-11.7) 10/08/18 15:40 Neut % (Auto) Not Reported 10/08/18 15:40 Lymph % (Auto) Not Reported 10/08/18 15:40 Dare % (Auto) Not Reported 10/08/18 15:40 Eos % (Auto) Not Reported 10/08/18 15:40 Baso % (Auto) Not Reported 10/08/18 15:40 Nucleat RBC Rel Count Not Reported 10/08/18 15:40 Absolute Neuts (auto) Not Reported 10/08/18 15:40 Absolute Lymphs (auto) Not Reported 10/08/18 15:40 Absolute Monos (auto) Not Reported 10/08/18 15:40 Absolute Eos (auto) Not Reported 10/08/18 15:40 Absolute Basos (auto) Not Reported 10/08/18 15:40 Absolute Nucleated RBC Not Reported 10/08/18 15:40 Immature Gran % Not Reported 10/08/18 15:40 Seg Neutrophils % 68.7 % 10/08/18 15:40 Band Neutrophils % 5.1 % 10/08/18 15:40 Lymphocytes % 14.1 % 10/08/18 15:40 Monocytes % 11.1 % 10/08/18 15:40 Eosinophils % 0.0 % 10/08/18 15:40 Basophils % 1.0 % 10/08/18 15:40 Metamyelocytes % 0.0 % 10/08/18 15:40 Myelocytes % 0.0 % 10/08/18 15:40 Promyelocytes % 0.0 % 10/08/18 15:40 Blast Cells % 0.0 % 10/08/18 15:40 Immature Gran # Not Reported 10/08/18 15:40 Absolute Seg Neuts 6.55 10^3/uL (1.70-6.50) H 10/08/18 15:40 Absolute Band Neuts 0.49 10^3/uL (0.00-0.70) 10/08/18 15:40 Absolute Lymphocytes 1.34 10^3/uL (1.00-3.00) 10/08/18 15:40 Absolute Monocytes 1.06 10^3/uL (0.30-0.80) H 10/08/18 15:40 Absolute Eosinophils 0.00 10^3/uL (0.03-0.40) L 10/08/18 15:40 Absolute Basophils 0.10 10^3/uL (0.02-0.10) 10/08/18 15:40 Absolute Metamyelocyte 0.00 10^3/mL (0.00-0.00) 10/08/18 15:40 Absolute Myelocytes 0.00 10^3/mL (0.00-0.00) 10/08/18 15:40 Absolute Promyelocytes 0.00 10^3/uL (0.00-0.00) 10/08/18 15:40 Absolute Plasma Cells 0.00 10^3/uL (0.00-0.00) 10/08/18 15:40 Nucleated RBCs 0 /100 WBC (0-0) 10/08/18 15:40 RBC/WBC/PLT Morphology NORMAL (NORMAL) 10/08/18 15:40 Absolute Blast Cells 0.00 10^3/uL (0.00-0.00) 10/08/18 15:40 Plasma Cells % 0.0 % 10/08/18 15:40 Platelet Estimate ADEQUATE (ADEQ) 10/08/18 15:40 Sodium 137 mEq/L (135-145) 10/08/18 15:40 Potassium 4.1 mEq/L (3.5-5.2) 10/08/18 15:40 Chloride 103 mEq/L (97-110) 10/08/18 15:40 Carbon Dioxide 25 mEq/l (22-31) 10/08/18 15:40 Anion Gap 9 mEq/L (6-14) 10/08/18 15:40 BUN 18 mg/dL (7-23) 10/08/18 15:40 Creatinine 1.1 mg/dL (0.7-1.3) 10/08/18 15:40 Estimated GFR > 60 10/08/18 15:40 Glucose 149 mg/dL (70-100) H 10/08/18 15:40 Calcium 8.9 mg/dL (8.5-10.4) 10/08/18 15:40 Assessment & Plan Assessment: R Ankle Fracture - S/p mechanical fall yesterday - Unable to bear weight today - XR shows R ankle bimalleolar fracture - Ortho consulted in ED, to see patient this evening - PRN Pain medications - Ankle brace placed in ED - PT/OT consulted Prostatitis? - Ct pelvis performed yesterday shows haziness around rectum and prostates, questionable prostatitis vs. proctitis - Patient denies dysuria, however does report decreased urine output today, but also not taking much PO per - No bladder tenderness on exam - UA pending, treat accordingly based on results Hx of Bipolar Disorder - Continue home medications pending med rec T2DM - Continue home medications pending med rec - Will order SSI as well Diastolic CHF - Continue home Lasix Hypothyroidism - Continue home synthroid HTN - Continue home Lisinopril HLD - Continue home Simvastatin FEN: NPO pending ortho evaluation Code: FULL DVT PPx: SubQ Heparin Dispo: Admit to Observation
[2018-10-08] MEDS ORDERED: D50W 25 GM/50 ML SYR IVP PRN (17:40)
[2018-10-08] MEDS: IBUPROFEN 200 MG TAB PO PRN (18:50)
[2018-10-08] MEDS: HEPARIN 5,000 UNIT/0.5 ML INJ SC SCH (22:17)
[2018-10-08] MEDS: INSULIN LISPRO 100 UNIT/ML SC SCH (22:26)
[2018-10-09] MEDS: HEPARIN 5,000 UNIT/0.5 ML INJ SC SCH ×3 (05:54→21:34)
--- NOTE | 2018-10-09 07:43 | PDCONSULT ---
Vessel Operator Note: ORTHOPEDIC SURGERY CONSULT NOTE ASSESSMENT: Right Distal Fibula Fracture, Minimally Displaced Right Medial malleoli Fracture, Small, non-displaced PLAN: At this point in time, we will try to treat this fracture non-operatively. Patient to wear CAM/Walking Boot at all times, with NWB RLE and use of walker/ crutches We would like to see patient back in our clinic in 7-10 days for re-evaluation and repeat radiographs Tylenol, ICE, rest, elevation for pain control Please have patient/ call our clinic to confirm a date/time for appointment. We appreciate the consult. If there are any further questions or concerns regarding Mr. Roque, please reach out to us. Luis Miguel Hillman PA-C and Dr. Gustavo Hyde MD [facility] [phone] SUBJECTIVE: Sergio Roque is a 73 yo M with a PMHx of Parkinson's Disease, T2DM, Bipolar d/o, Prostate cancer, HTN, hypothyroidism, Diastolic CHF who presented to [facility] for R ankle pain, inability to bear weight and transfer. X-rays in ER show Right distal fibula fracture, minimally displaced, with small medial malleoli fracture. He was admitted to Hospitalist service due to multiple comorbidities. ER and hospitalist service requested an orthopedic consult for further recommendations. OBJECTIVE: Patient laying in bed, no acute distress. Right foot immobilized properly. Wiggles toes well. no open wounds seen. Distal Neurovasculature intact. Luis Miguel Hillman PA-C for Dr. Gustavo Hyde (Orthopedic Surgery)
[2018-10-09] MEDS: INSULIN LISPRO 100 UNIT/ML SC SCH ×3 (09:29→18:48)
[2018-10-09] MEDS: DIVALPROEX NA 500 MG TAB PO SCH ×2 (11:48→21:35)
[2018-10-09] MEDS: MULTIVITAMINS 1 EACH TAB PO SCH (11:49)
[2018-10-09] MEDS: ASPIRIN 325 MG TAB PO SCH (11:49)
[2018-10-09] MEDS: PARoxetine HCL 20 MG TAB PO SCH (11:49)
[2018-10-09] MEDS: ARIPiprazole 10 MG TAB PO SCH (11:49)
[2018-10-09] MEDS: LEVOTHYROXINE 200 MCG TAB PO SCH (11:50)
[2018-10-09] MEDS: CHOLECALCIFEROL VIT D3 2,000 UNITS TAB/CAP PO SCH (11:50)
[2018-10-09] MEDS: LEVOTHYROXINE 75 MCG TAB PO SCH (11:50)
[2018-10-09] MEDS: LISINOPRIL 10 MG TAB PO SCH (11:53)
[2018-10-09] MEDS: FUROSEMIDE 40 MG TAB PO SCH (11:53)
[2018-10-09] MEDS: Empagliflozin [Jardiance] 25 MG PO SCH (12:04)
--- NOTE | 2018-10-09 16:09 | HOSPPROG ---
Hospitalist Progress Note Assessment/Plan: 73y male with fall. First encounter, chart reviewed. *R Ankle Fracture - S/p mechanical fall - Unable to bear weight - XR shows R ankle bimalleolar fracture - Ortho consulted, no surgery - PRN Pain medications - CAM boot - PT/OT *Prostatitis - Ct pelvis performed shows haziness around rectum and prostates, questionable prostatitis vs. proctitis - Patient denies dysuria, however does report decreased urine output but also not taking much PO - UA pending negative *Hx of Bipolar Disorder - Continue home medications *T2DM - Continue home medications - SSI as well *Diastolic CHF - Continue home Lasix *Hypothyroidism - Continue home synthroid *HTN - Continue home Lisinopril *HLD - Continue home Simvastatin FEN: diabetic diet Code: FULL DVT PPx: SubQ Heparin Dispo: change to inpt status needs further evaluation and workup needs better pain control Subjective: Unable to get up on own. Still having significant pain. Objective: Vital Signs Temp Pulse Resp BP Pulse Ox 36.7 C 84 18 111/56 L 94 10/09/18 11:49 10/09/18 11:49 10/09/18 11:49 10/09/18 11:53 10/09/18 11:49 10/08/18 10/09/18 10/10/18 05:59 05:59 05:59 Intake Total 350 Balance 350 - Physical Exam Constitutional: no apparent distress, chronically ill appearing, obese Eyes: PERRL, anicteric sclera, EOMI Ears, Nose, Mouth, Throat: moist mucous membranes, hearing normal, ears appear normal Cardiovascular: No JVD, No tachycardia, No edema Respiratory: no respiratory distress, no rales or rhonchi, reduced air movement Gastrointestinal: normoactive bowel sounds, No tenderness, No ascites Skin: warm, normal color, No mottled Musculoskeletal: joint tenderness, pain with ROM, generalized weakness Neurologic: AAOx3 Psychiatric: interacting appropriately, not anxious, not encephalopathic ICD10 Worksheet Patient Problems: Problems Problem Status Onset Diabetes mellitus type 2 Acute Obesity Active Osteoarthritis of knee Acute Bronchitis Acute Pharyngitis Acute Dehydration Acute Tachycardia Acute Fracture of distal fibula Acute Parkinsons disease Acute
--- NOTE | 2018-10-09 16:41 | ASMTCMCOM ---
CM Note CM Note Notes: Pt w Parkinson's, Bipolar d/o here with ankle fx. 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 Pt ex- resides near and assists pt. Ortho consulting, no surgery recommended. OT/PT rec SNF today. Chart review indicates pt has been to [facility] in January 2017. CM to follow up with pt tomorrow about SNF rec. Date Signed: 10/09/2018 04:41 PM Electronically Signed By:ANTONI Owen
[2018-10-09] MEDS: ACETAMINOPHEN 325 MG TAB PO PRN (16:58)
[2018-10-09] MEDS: MELATONIN 3 MG TAB PO SCH (21:35)
[2018-10-09] MEDS: QUEtiapine FUMARATE 300 MG TAB PO SCH (21:35)
[2018-10-10] MEDS: HEPARIN 5,000 UNIT/0.5 ML INJ SC SCH ×3 (06:18→21:04)
[2018-10-10] MEDS: LEVOTHYROXINE 75 MCG TAB PO SCH (06:19)
[2018-10-10] MEDS: LEVOTHYROXINE 200 MCG TAB PO SCH (06:19)
[2018-10-10] MEDS: ACETAMINOPHEN 325 MG TAB PO PRN ×2 (06:19→10:20)
--- NOTE | 2018-10-10 08:12 | PDMN ---
Medical Necessity Medical necessity: Change to IP, as of 10/09/18, per [employer]PLAY [employer]NAGER & [facility] General Discharge Criteria; los >2 mn for ongoing management of R ankle fx s/p mechanical fall w/CAM boot in place; non-wt bearing w/inability to ambulate independently; pt lives alone & is currently requiring 2 person assist; unsafe to dc home; requiring therapies & CM consult for dc planning; comorbid Parkinson 's, uses wc at baseline, CHF, diabetes
[2018-10-10] MEDS: DIVALPROEX NA 500 MG TAB PO SCH ×2 (08:29→20:47)
[2018-10-10] MEDS: ARIPiprazole 10 MG TAB PO SCH (08:29)
[2018-10-10] MEDS: MULTIVITAMINS 1 EACH TAB PO SCH (08:29)
[2018-10-10] MEDS: ASPIRIN 325 MG TAB PO SCH (08:29)
[2018-10-10] MEDS: CHOLECALCIFEROL VIT D3 2,000 UNITS TAB/CAP PO SCH (08:29)
[2018-10-10] MEDS: PARoxetine HCL 20 MG TAB PO SCH (08:29)
[2018-10-10] MEDS: Empagliflozin [Jardiance] 25 MG PO SCH (08:33)
[2018-10-10] MEDS: LISINOPRIL 10 MG TAB PO SCH (09:05)
[2018-10-10] MEDS: FUROSEMIDE 40 MG TAB PO SCH (09:06)
--- NOTE | 2018-10-10 10:14 | ASMTCMCOM ---
CM Note CM Note Notes: Pt reports he wants to go to SNF, chooses [facility]. Referral sent to [facility] in [employer]. CM to follow. Date Signed: 10/10/2018 10:13 AM Electronically Signed By:ANTONI Owen
[2018-10-10] MEDS: IBUPROFEN 200 MG TAB PO PRN (10:20)
[2018-10-10] MEDS: INSULIN LISPRO 100 UNIT/ML SC SCH ×3 (10:20→19:48)
--- NOTE | 2018-10-10 13:35 | HOSPPROG ---
Hospitalist Progress Note Assessment/Plan: 73y male with fall. *R Ankle Fracture - S/p mechanical fall - Unable to bear weight - XR shows R ankle bimalleolar fracture - Ortho consulted, no surgery - PRN Pain medications - CAM boot - PT/OT *Prostatitis - Ct pelvis performed shows haziness around rectum and prostates, questionable prostatitis vs. proctitis - Patient denies dysuria, however does report decreased urine output but also not taking much PO - UA pending negative *Hx of Bipolar Disorder - Continue home medications *T2DM - Continue home medications - SSI as well *Diastolic CHF - Continue home Lasix *Hypothyroidism - Continue home synthroid *HTN - Continue home Lisinopril *HLD - Continue home Simvastatin FEN: diabetic diet Code: FULL DVT PPx: SubQ Heparin Dispo: change to inpt status needs further evaluation and workup needs better pain control will need SNF at [place] Subjective: Still having pain. Unable to bear weight. Objective: Vital Signs Temp Pulse Resp BP Pulse Ox 36.8 C 106 H 16 105/59 L 91 L 10/10/18 08:00 10/10/18 10:52 10/10/18 08:00 10/10/18 08:00 10/10/18 10:52 10/09/18 10/10/18 10/11/18 05:59 05:59 05:59 Intake Total 700 Output Total 2450 Balance -1750 - Physical Exam Constitutional: appears nourished, obese, uncomfortable Eyes: PERRL, anicteric sclera, EOMI Ears, Nose, Mouth, Throat: moist mucous membranes, hearing normal, ears appear normal Cardiovascular: No JVD, No edema Respiratory: no respiratory distress, reduced air movement Gastrointestinal: No tenderness, No ascites Skin: warm, normal color Musculoskeletal: joint tenderness, pain with ROM, generalized weakness Neurologic: AAOx3 Psychiatric: interacting appropriately, not anxious, not encephalopathic ICD10 Worksheet Patient Problems: Problems Problem Status Onset Diabetes mellitus type 2 Acute Obesity Active Osteoarthritis of knee Acute Bronchitis Acute Pharyngitis Acute Dehydration Acute Tachycardia Acute Fracture of distal fibula Acute Parkinsons disease Acute
[2018-10-10] MEDS: PRAVASTATIN SODIUM 20 MG TAB PO SCH (20:47)
[2018-10-10] MEDS: QUEtiapine FUMARATE 300 MG TAB PO SCH (20:47)
[2018-10-10] MEDS: MELATONIN 3 MG TAB PO SCH (20:47)
[2018-10-11] MEDS: ACETAMINOPHEN 325 MG TAB PO PRN ×2 (05:01→11:14)
[2018-10-11] MEDS: LEVOTHYROXINE 200 MCG TAB PO SCH (05:21)
[2018-10-11] MEDS: LEVOTHYROXINE 75 MCG TAB PO SCH (05:21)
[2018-10-11] MEDS: IBUPROFEN 200 MG TAB PO PRN ×2 (05:21→11:14)
[2018-10-11] MEDS: HEPARIN 5,000 UNIT/0.5 ML INJ SC SCH ×3 (05:25→21:56)
[2018-10-11] MEDS: INSULIN LISPRO 100 UNIT/ML SC SCH ×3 (08:54→18:06)
[2018-10-11] MEDS: MULTIVITAMINS 1 EACH TAB PO SCH (08:55)
[2018-10-11] MEDS: DIVALPROEX NA 500 MG TAB PO SCH ×2 (08:55→20:16)
[2018-10-11] MEDS: CHOLECALCIFEROL VIT D3 2,000 UNITS TAB/CAP PO SCH (08:55)
[2018-10-11] MEDS: ASPIRIN 325 MG TAB PO SCH (08:55)
[2018-10-11] MEDS: PARoxetine HCL 20 MG TAB PO SCH (08:55)
[2018-10-11] MEDS: ARIPiprazole 10 MG TAB PO SCH (08:55)
[2018-10-11] MEDS: Empagliflozin [Jardiance] 25 MG PO SCH (08:57)
[2018-10-11] MEDS: LISINOPRIL 10 MG TAB PO SCH (09:01)
[2018-10-11] MEDS: FUROSEMIDE 40 MG TAB PO SCH (09:01)
--- NOTE | 2018-10-11 13:56 | HOSPPROG ---
Hospitalist Progress Note Assessment/Plan: 73y male with fall. *R Ankle Fracture - S/p mechanical fall - Unable to bear weight - XR shows R ankle bimalleolar fracture - Ortho consulted, no surgery - PRN Pain medications - CAM boot - PT/OT *Prostatitis - Ct pelvis performed shows haziness around rectum and prostates, questionable prostatitis vs. proctitis - Patient denies dysuria, however does report decreased urine output but also not taking much PO - UA pending negative *Urinary retention - unclear etiol - repeat UA - possibly related to pain meds vs other - leave nguyen in *Hx of Bipolar Disorder - Continue home medications *T2DM - Continue home medications - SSI as well *Diastolic CHF - Continue home Lasix *Hypothyroidism - Continue home synthroid *HTN - Continue home Lisinopril *HLD - Continue home Simvastatin *Parkisonism fro psych meds - severe tremor - does not want to titrate off psych meds - no home meds - pt does not want to try beta samreen - D/W pt and pharmacy FEN: diabetic diet Code: FULL DVT PPx: SubQ Heparin Dispo: needs further evaluation and workup needs better pain control will need SNF at [place] in am if stable Subjective: Feeling better. No specific issues. Objective: Vital Signs Temp Pulse Resp BP Pulse Ox 36.7 C 74 17 113/52 L 95 10/11/18 11:37 10/11/18 11:37 10/11/18 11:37 10/11/18 11:37 10/11/18 11:37 10/10/18 10/11/18 10/12/18 05:59 05:59 05:59 Intake Total 700 650 Output Total 2450 1400 Balance -1750 -750 - Physical Exam Constitutional: appears nourished, obese Eyes: PERRL, anicteric sclera, EOMI Ears, Nose, Mouth, Throat: moist mucous membranes, hearing normal, ears appear normal Cardiovascular: No JVD, No edema Respiratory: no respiratory distress, reduced air movement Gastrointestinal: No tenderness, No ascites Skin: warm, normal color Musculoskeletal: joint tenderness, pain with ROM, generalized weakness Neurologic: AAOx3, other (tremor) Psychiatric: interacting appropriately, not anxious, not encephalopathic ICD10 Worksheet Patient Problems: Problems Problem Status Onset Diabetes mellitus type 2 Acute Obesity Active Osteoarthritis of knee Acute Bronchitis Acute Pharyngitis Acute Dehydration Acute Tachycardia Acute Fracture of distal fibula Acute Parkinsons disease Acute
--- NOTE | 2018-10-11 16:45 | ASMTCMCOM ---
CM Note CM Note Notes: D/c plan remains [facility] tomorrow. Sherry with [facility] reports they will have a bed tomorrow. Date Signed: 10/11/2018 04:45 PM Electronically Signed By:ANTONI Owen
[2018-10-11] MEDS: MELATONIN 3 MG TAB PO SCH (20:17)
[2018-10-11] MEDS: PRAVASTATIN SODIUM 20 MG TAB PO SCH (20:18)
[2018-10-11] MEDS: QUEtiapine FUMARATE 300 MG TAB PO SCH (20:18)
[2018-10-12] MEDS: IBUPROFEN 200 MG TAB PO PRN ×3 (04:58→13:42)
[2018-10-12] MEDS: ACETAMINOPHEN 325 MG TAB PO PRN ×3 (04:59→13:41)
[2018-10-12] MEDS: LEVOTHYROXINE 200 MCG TAB PO SCH (05:00)
[2018-10-12] MEDS: LEVOTHYROXINE 75 MCG TAB PO SCH (05:00)
[2018-10-12] MEDS: HEPARIN 5,000 UNIT/0.5 ML INJ SC SCH ×2 (05:00→13:41)
[2018-10-12] MEDS: INSULIN LISPRO 100 UNIT/ML SC SCH ×2 (09:13→13:16)
[2018-10-12] MEDS: FUROSEMIDE 40 MG TAB PO SCH (09:17)
[2018-10-12] MEDS: ASPIRIN 325 MG TAB PO SCH (09:19)
[2018-10-12] MEDS: DIVALPROEX NA 500 MG TAB PO SCH (09:19)
[2018-10-12] MEDS: MULTIVITAMINS 1 EACH TAB PO SCH (09:19)
[2018-10-12] MEDS: ARIPiprazole 10 MG TAB PO SCH (09:19)
[2018-10-12] MEDS: PARoxetine HCL 20 MG TAB PO SCH (09:19)
[2018-10-12] MEDS: CHOLECALCIFEROL VIT D3 2,000 UNITS TAB/CAP PO SCH (09:19)
[2018-10-12] MEDS: Empagliflozin [Jardiance] 25 MG PO SCH (09:20)
--- NOTE | 2018-10-12 10:00 | PDIAF ---
- Diagnosis Diagnosis: fibular and medial malleolar fracture Code Status: Full Code - Medication Management Discharge Medications: electronically signed and located in the Home Medication List. PICC Care - Routine: N/A - Orders Services needed: Registered Nurse, Physical Therapy, Occupational Therapy Isolation Type: None Diet Recommendation: no restrictions on diet Additional Instructions: No weight bearing of right leg. Use walker or crutches for ambulation Use walking Boot at all times Ice, elevate, OTC pain meds as needed. Followup in 7-10 days at [facility] for re-evaluation Please call clinic to confirm date/time of appointment [phone] - Follow Up Care Current Providers and Referrals: JOANNE TEE MD [Other] - As per Instructions Gustavo Hyde MD [Medical Doctor] -
[2018-10-12] MEDS: LISINOPRIL 10 MG TAB PO SCH (10:21)
[2018-10-12 10:24] VITALS: BP 119/63
--- NOTE | 2018-10-12 12:11 | ASMTLACE ---
NEVAEH Length of stay for Answers: 4-6 days current admission Acuity / Level of Answers: Yes Care: Did the patient have an inpatient admission? Comorbidities - select Answers: Any tumor (including all that apply lymphoma or leukemia) Diabetes (uncontrolled or controlled) Opioid dependence / Chronic pain Other Notes: Parkinson's disease; HTN; Hypothyro id # of Emergency department Answers: 3-4 visits in the last 6 months Social determinants Answers: Mental health diagnosis (anxiety, depression, pers onality disorders, etc.) Score: 21 Date Signed: 10/12/2018 12:10 PM Electronically Signed By:ANTONI Owen
--- NOTE | 2018-10-12 12:14 | ASMTCMCOM ---
CM Note CM Note Notes: Pt medically stable for d/c to [facility] orders sent in [employer]. Bariatric wc w leg tail sawyer transport arranged by [facility] with [facility] for 1400. TEN Huerta to call report. Date Signed: 10/12/2018 12:14 PM Electronically Signed By:ANTONI Owen
--- NOTE | 2018-10-12 15:58 | ASDISCHSUM ---
Discharge Information Plan Status:SNF Medically Cleared to Leave: Discharge Date:10/12/2018 02:26 PM CM D/C Disposition: ADT D/C Disposition:Half-Way Facility Projected Discharge Date:10/13/2018 11:00 AM Transportation at D/C: Discharge Delay Reason: Follow-Up Date:10/13/2018 11:00 AM Discharge Slot: Final Diagnosis: Placement Information Referral Type:*Snf/SNF Referral ID:[id number] Provider Name:[facility] Address 1:[address] Address 2: City:[place] Selection Factors: State:[place] Patient Contact Information Contact Name:RANDYGAURI Relationship:Other Address:[address] [address] City:[place] Alternate Phone: State/Zip Code:[place] [address] Email: Financial Information Financial Class:Medicare Primary Plan Desc:MEDICARE INPATIENT Primary Plan Number:[id number] Secondary Plan Desc: Secondary Plan Number: Assessment Information LACE LACE Length of stay for Answers: 4-6 days current admission Acuity / Level of Answers: Yes Care: Did the patient have an inpatient admission? Comorbidities - select Answers: Any tumor (including all that apply lymphoma or leukemia) Diabetes (uncontrolled or controlled) Opioid dependence / Chronic pain Other Notes: Parkinson's disease; HTN; Hypothyro id # of Emergency department Answers: 3-4 visits in the last 6 months Social determinants Answers: Mental health diagnosis (anxiety, depression, pers onality disorders, etc.) Score: 21 Date Signed: 10/12/2018 12:10 PM Electronically Signed By:ANTONI Owen [facility] CM Progress Note CM Note CM Note Notes: Pt w Parkinson's, Bipolar d/o here with ankle fx. Pt uses wc at baseline, has MUSEUM OR ZOO DIRECTOR care in the home he resides in alone. Pt ex- resides near and assists pt. Ortho consulting, no surgery recommended. OT/PT rec SNF today. Chart review indicates pt has been to [facility] in January 2017. CM to follow up with pt tomorrow about SNF rec. Date Signed: 10/09/2018 04:41 PM Electronically Signed By:ANTONI Owen [facility] CM Progress Note CM Note CM Note Notes: Pt reports he wants to go to [facility], chooses [facility]. Referral sent to [facility] in [employer]. CM to follow. Date Signed: 10/10/2018 10:13 AM Electronically Signed By:ANTONI Owen [facility] CM Progress Note CM Note CM Note Notes: D/c plan remains [facility] tomorrow. Sherry with [facility] reports they will have a bed tomorrow. Date Signed: 10/11/2018 04:45 PM Electronically Signed By:ANTONI Owen [facility] CM Progress Note CM Note CM Note Notes: Pt medically stable for d/c to [facility], orders sent in [employer]. Bariatric wc w leg chemical inspector transport arranged by [facility] with [facility] for [facility]. TEN Huerta to call report. Date Signed: 10/12/2018 12:14 PM Electronically Signed By:ANTONI Owen Intervention Information Intervention Type:*Incorrect Registration Date of Service:10/08/2018 11:20 AM Patient Type:Inpatient Staff Member:TEN Malagon, Yarelis Hours: Discipline: Severity: Comment:
--- NOTE | 2018-10-12 19:19 | PDIAF ---
- Diagnosis Diagnosis: fibular and medial malleolar fracture Code Status: Full Code - Medication Management Discharge Medications: electronically signed and located in the Home Medication List. PICC Care - Routine: N/A - Orders Services needed: Registered Nurse, Physical Therapy, Occupational Therapy Isolation Type: None Diet Recommendation: no restrictions on diet Nguyen: Yes Additional Instructions: No weight bearing of right leg. Use walker or crutches for ambulation Use walking Boot at all times Ice, elevate, [id number] pain meds as needed. Followup in 7-10 days at [facility] for re-evaluation Please call clinic to confirm date/time of appointment [phone] Fly Allen, urology for urinary retention and nguyen management.. - Follow Up Care Current Providers and Referrals: JOANNE TEE MD [Other] - As per Instructions Gustavo Hyde MD [Medical Doctor] - Fly Allen MD [Medical Doctor] -
--- NOTE | 2018-10-12 19:57 | GDS ---
[f rep st] DISCHARGE SUMMARY DISCHARGE DIAGNOSES: 1. Right ankle fracture. Continue Cam boot, nonweightbearing until followup with Orthopedic Surgery . 2. Urinary retention. The patient is discharged with Villegas in place. Will need outpatient followup with Urology. 3. History of bipolar disorder. 4. Type 2 diabetes mellitus. 5. Diastolic heart failure. 6. Hypothyroidism. 7. Hypertension. 8. Hyperlipidemia. 9. Parkinsonism from his psychiatric medications. CONSULTANTS: Luis Miguel Hillman, Orthopedic Surgery. HISTORY OF DETAILS: Please see history and physical dated October 08, 2018. In brief, the patient is a 73-year-old male with multiple medical problems, who presented to the emergency department with right ankle pain after a fall the day prior to arrival. He was found to have a right ankle fracture and was admitted to the hospital for further management. HOSPITAL COURSE: The patient was admitted to the med/surg unit. Orthopedic Surgery consult was jaime armando, who felt this was nonoperative. Nonweightbearing status was recommended. He was placed in a C am walker/boot, and he was followed by PT/OT. He was advised to have close followup with Orthopedic Surgery, Dr. Hyde, in 1 week after discharge for repeat x-rays. He was noted on a pelvis CT the day prior to arrival to have some haziness around the prostate. Urinalysis here was negative. He was n ot treated with antibiotics. Again, he is discharged with a Villegas in place due to urinary retention and should have followup with Urology. He was continued on his bipolar medications. It was noted he had a parkinsonian tremor, and this was thought likely due to his psych meds. He was offered a beta -samreen and also would consider titrating him down on his psych meds. He declined both of these opt ions. He remained stable regarding his diabetes, heart failure, hypothyroidism, hypertension and hyp erlipidemia. DISPOSITION: Patient is discharged to a [facility] facility in stable condition. FOLLOWUP: 1. Dr. Gustavo Hyde, Orthopedic Surgery. 2. Dr. Xenia Man, Primary Care. 3. Dr. Fly Allen, Neurology. DISCHARGE MEDICATIONS: Please see [employer] for a completed and updated outpatient medication list. NEW MEDICATIONS ON DISCHARGE: Include: 1. Tylenol 650 p.o. q.4 hours p.r.n. 2. [place] 5/325 at 1-2 tabs p.o. q.6 hours p.r.n. Do not exceed greater than 3 g of Tylenol per 24 h ours total. 3. Ibuprofen 400 mg p.o. q.4 hours p.r.n. 4. He will continue all other outpatient medications as previously prescribed. /[id number]/MODL
== END 2018-10-12 14:26 | DRG 563 ==
LOC: EDUNIT# → INTOOBSV 16:49 → F3N 18:06 → OBSVTOIN 10-09 11:34
PROVIDERS: ADMIT Internal Medicine; ATTEND Internal Medicine
DX: S82.841A Displaced bimalleolar fracture of right lower leg, initial encounter for closed fracture (principal); I11.0 Hypertensive heart disease with heart failure; I50.32 Chronic diastolic (congestive) heart failure; W18.39XA Other fall on same level, initial encounter; G20 Parkinson's disease; E11.9 Type 2 diabetes mellitus without complications; F31.9 Bipolar disorder, unspecified; E03.9 Hypothyroidism, unspecified; R33.9 Retention of urine, unspecified; E78.5 Hyperlipidemia, unspecified; N41.9 Inflammatory disease of prostate, unspecified; Z85.46 Personal history of malignant neoplasm of prostate
CPT/HCPCS: 97110-GP; 97162-GP; 97166-GO; 97530-GO; 97530-GP; 97535-GO; G0378; J1644; J1815; L4386